=== PATIENT | male | born 1950 | race Caucasian/White ===

== ENCOUNTER 2020-12-29 09:24 | Emergency (ER) | payer OTHER, MEDICARE ==
[2020-12-29 09:29] VITALS: BP 193/98; PULSE 102; RESP 18; TEMP 97.2
[2020-12-29] MEDS ORDERED: predniSONE 50 MG TAB PO STA (09:41)
[2020-12-29] MEDS ORDERED: KETOROLAC 15 MG/ML 1 ML VIAL IM STA (09:41)
[2020-12-29] MEDS ORDERED: HYDROmorphone 1 MG/ML 1 ML SYRINGE IM STA (09:41)
--- NOTE | 2020-12-29 09:44 | ED ---
General Adult HPI - General Chief complaint: Extremity Injury, Lower Stated complaint: sciatic pain Time Seen by Provider: 12/29/20 09:25 Source: patient, RN notes reviewed, old records reviewed Mode of arrival: wheelchair Limitations: physical limitation - History of Present Illness Initial comments: This is a 70-year-old male presents emergency Department complaining of left- sided buttocks pain radiates down to his posterior thigh and posterior calf. Patient states symptoms started 2 days ago. Patient states she's had similar symptoms before and was diagnosed with sciatica. Patient denies any numbness or weakness. Patient denies any difficulty urinating or urinary retention. Patient denies any new injury. Patient denies any swelling to the legs or calf tenderness. - Related Data Previous Rx's Medication Instructions Recorded predniSONE [Deltasone] 40 mg PO DAILY #8 tab 12/29/20 Allergies Allergy/AdvReac Type Severity Reaction Status Date / Time No Known Allergies Allergy Verified 12/29/20 09:28 Review of Systems ROS Statement: Those systems with pertinent positive or pertinent negative responses have been documented in the HPI. ROS Other: All systems not noted in ROS Statement are negative. Past Medical History Past Medical History: GERD/Reflux, Hyperlipidemia Additional Past Medical History / Comment(s): back pain History of Any Multi-Drug Resistant Organisms: None Reported Past Surgical History: Back Surgery, Hernia Repair Smoking Status: Never smoker Past Alcohol Use History: None Reported Past Drug Use History: Marijuana General Exam - General Exam Comments Initial Comments: GENERAL Patient is well-developed and well-nourished. Patient is in mild distress. EYES Patient's pupils are equal and round. Extraocular motion is intact SKIN Unremarkable NEURO The patient is alert and oriented 3 PYSCH Patient has normal interpersonal interactions. MUSCULOSKELETAL Patient has positive straight leg test at 30 on the left. Patient has normal perineum sensation. Patient has some tenderness in the left buttocks region. Limitations: physical limitation Course Vital Signs 12/29/20 09:26 Temperature 97.2 F L Pulse Rate 102 H Respiratory 18 Rate Blood Pressure 193/98 O2 Sat by Pulse 100 Oximetry Medical Decision Making - Medical Decision Making patient received Toradol Dilaudid and prednisone. Patient's lumbosacral spine showed no acute injury. The pain medication helped the patient significantly. Disposition Clinical Impression: Sciatica Disposition: HOME SELF-CARE Condition: Good Instructions (If sedation given, give patient instructions): Sciatica (ED) Prescriptions: predniSONE [Deltasone] 40 mg PO DAILY #8 tab Is patient prescribed a controlled substance at d/c from ED?: No Referrals: Nonstaff,Physician [REFERRING] - 1-2 days Time of Disposition: 11:49
--- NOTE | 2020-12-29 11:17 | XR ---
Lumbar spine. HISTORY: Back pain and left lower extremity radiculopathy. COMPARISON: None. TECHNIQUE: 5 views lumbar spine were obtained. FINDINGS: The lumbar vertebral segments are normal in height and alignment and there is no fractures there is m ild degenerative disease at the L1-2, L2-3, L3-4 and L4-5 level is mild disc space mild There is mild facet arthropathy. IMPRESSION: 1. Mild degenerative disc disease at L1-L5. 2. Mild facet arthropathy at the L4-5 and L5-S1 level. 3. No spondylolysis, spondylolisthesis or lumbar spine fracture.
[2020-12-29] MEDS ORDERED: ACET/COD 300 MG/30 MG STARTER PACK 6 TAB BTL PO STA (11:49)
== END 2020-12-29 12:14 | disposition home or self-care (01) ==
LOC: EC 09:24
DX: M54.32 Sciatica, left side (principal)
CPT/HCPCS: 72110; 99283; 96372; J1170; J1885; J7512

== ENCOUNTER 2021-01-02 19:02 | Emergency (ER) | payer OTHER, MEDICARE ==
[2021-01-02] MEDS ORDERED: HYDROmorphone 1 MG/ML 1 ML SYRINGE IM STA (21:45)
[2021-01-02] MEDS ORDERED: KETOROLAC 15 MG/ML 1 ML VIAL IM STA (21:45)
--- NOTE | 2021-01-02 22:13 | ED ---
General Adult HPI - General Chief complaint: Back Pain/Injury Stated complaint: sciatic pain Time Seen by Provider: 01/02/21 21:13 Source: patient, RN notes reviewed Mode of arrival: ambulatory - History of Present Illness Initial comments: 70-year-old male with a past medical history of GERD, hyperlipidemia, back pain presents to the emergency room for sciatic pain. Patient states has been ongoing for about a week now. He does start in his left buttock and radiates down his leg. States it is a sharp burning pain. States sometimes his toes are tingling. Patient has been taking steroids but it doesn't seem to be helping. He was seen here and given pain medication a few days ago which helped. He ran out of his Tylenol 3. Patient denies bladder or bowel changes, saddle anesthesia, fevers, weakness.Patient has no other complaints at this time including shortness of breath, chest pain, abdominal pain, nausea or vomiting, headache, or visual changes. - Related Data Previous Rx's Medication Instructions Recorded predniSONE [Deltasone] 40 mg PO DAILY #8 tab 12/29/20 HYDROcodone/APAP 5-325MG [[place] 1 tab PO Q6HR PRN #12 tab 01/02/21 5-325] Allergies Allergy/AdvReac Type Severity Reaction Status Date / Time No Known Allergies Allergy Verified 01/02/21 20:42 Review of Systems ROS Statement: Those systems with pertinent positive or pertinent negative responses have been documented in the HPI. ROS Other: All systems not noted in ROS Statement are negative. Past Medical History Past Medical History: GERD/Reflux, Hyperlipidemia Additional Past Medical History / Comment(s): back pain History of Any Multi-Drug Resistant Organisms: None Reported Past Surgical History: Back Surgery, Hernia Repair Past Psychological History: No Psychological Hx Reported Smoking Status: Never smoker Past Alcohol Use History: None Reported Past Drug Use History: Marijuana General Exam General appearance: alert, in no apparent distress Head exam: Present: atraumatic Eye exam: Present: normal appearance, PERRL, EOMI. Absent: scleral icterus, conjunctival injection ENT exam: Present: normal exam, mucous membranes moist Neck exam: Present: normal inspection, full ROM. Absent: tenderness Respiratory exam: Present: normal lung sounds bilaterally. Absent: respiratory distress, wheezes Cardiovascular Exam: Present: regular rate, normal rhythm. Absent: normal heart sounds GI/Abdominal exam: Present: soft, normal bowel sounds. Absent: distended, tenderness Neurological exam: Present: alert Course Vital Signs 01/02/21 20:42 Temperature 96.8 F L Pulse Rate 84 Respiratory 22 Rate Blood Pressure 159/88 O2 Sat by Pulse 99 Oximetry Medical Decision Making - Medical Decision Making Vitals are stable. Patient is well-appearing. However he is mildly distressed secondary to pain. Neurovascular status intact left lower extremity. DP pulse 2+. Sensation is intact. CT lumbar spine did show mild relative spinal stenosis at L4-L5 due to facet arthropathy and posterior concentric disc bulging. She was given pain medication and did have improvement in symptoms. He is much more comfortable at this time. Patient is already on steroids. We'll refer patient to orthopedics. We will give him medication to go home on. He will return here for any worsening symptoms. Disposition Clinical Impression: Sciatica, Bulging of intervertebral disc between L4 and L5 Disposition: HOME SELF-CARE Condition: Good Instructions (If sedation given, give patient instructions): Acute Low Back Pain (ED) Additional Instructions: Please take pain medication as directed. Please follow-up with orthopedics. Return to the emergency room for any worsening symptoms. Prescriptions: HYDROcodone/APAP 5-325MG [[place] 5-325] 1 tab PO Q6HR PRN #12 tab PRN Reason: Pain Is patient prescribed a controlled substance at d/c from ED?: No Referrals: Sd Spangler MD [Primary Care Provider] - 1-2 days Paul Duque DO [Doctor of Osteopathic Medicine] - 1-2 days Time of Disposition: 23:20
--- NOTE | 2021-01-02 22:57 | CT ---
EXAMINATION TYPE: CT lumbar spine wo con DATE OF EXAM: 01/02/2021 COMPARISON: None HISTORY: low back and left leg pain CT DLP: 885.9 mGycm Automated exposure control for dose reduction was used. Images obtained from the level of T12-S2 vertebra without contrast. Lumbar vertebra have normal alignment. There is no compression fracture. There is mild spurring of th e endplates throughout the lumbar spine. There is a mild posterior concentric disc bulging at L4-5. T here is some mild facet arthropathy and a mild relative spinal stenosis at L4-5. There is no lumbar p araspinal mass. There is no evidence of focal bone destruction. Facet joints are intact. There is hyp ertrophic facet arthropathy at L4-5 and L5-S1. Abdominal aorta is atheromatous. Sacroiliac joints luis ear intact. IMPRESSION: Mild multilevel spondylotic changes. No acute bony abnormality. There is a mild relative spinal steno sis at L4-5 due to facet arthropathy and posterior concentric disc bulging.
[2021-01-02] MEDS ORDERED: ACET/COD 300 MG/30 MG STARTER PACK 6 TAB BTL PO STA (23:21)
[2021-01-02 23:46] VITALS: BP 125/78; PULSE 78; RESP 20; TEMP 98
== END 2021-01-02 23:44 | disposition home or self-care (01) ==
LOC: EC 19:02
DX: M54.42 Lumbago with sciatica, left side (principal); M51.26 Other intervertebral disc displacement, lumbar region; E78.5 Hyperlipidemia, unspecified; K21.9 Gastro-esophageal reflux disease without esophagitis; F12.90 Cannabis use, unspecified, uncomplicated; Z79.52 Long term (current) use of systemic steroids
CPT/HCPCS: 99283 ×2; 96372 ×3; 72131; J1170; J1885

== ENCOUNTER → 2021-02-08 | Outpatient (CLI) | payer OTHER, MEDICARE ==
--- NOTE | 2021-02-09 05:06 | MR ---
EXAMINATION TYPE: MR lumbar spine wo con DATE OF EXAM: 02/08/2021 COMPARISON: None HISTORY: LBP, LLE radiculopathy x 2 weeks, no hx trauma. Multiplanar multiecho imaging of the lumbar spine without contrast. Lumbar vertebra have normal alignment. There is degenerative disc space narrowing throughout the lumb ar spine. There is no compression fracture. There is minor spurring of the endplates. Sacroiliac join ts are intact. Lumbar nerve roots appear fairly normal. There is a right side posterior mild disc her niation at L4-5 impinging on the lateral recess. There is overall no significant spinal stenosis. IMPRESSION: Multilevel spondylotic changes. Right side posterior small disc herniation at L4-5 with some lateral recess impingement.
== END | disposition home or self-care (01) ==
LOC: RADMRIMAIN 18:05
PROVIDERS: ATTEND Orthopaedic Surgery Orthopaedic Surgery of the Spine
DX: M51.26 Other intervertebral disc displacement, lumbar region (principal); M47.816 Spondylosis without myelopathy or radiculopathy, lumbar region
CPT/HCPCS: 72148

== ENCOUNTER 2023-05-05 08:05 | Emergency (ER) | payer OTHER, MEDICARE ==
--- NOTE | 2023-05-05 08:25 | ED ---
Extremity Problem HPI - General Chief complaint: Extremity Injury, Upper Stated complaint: hand swelling,allergic reaction Time Seen by Provider: 05/05/23 08:10 Source: patient, RN notes reviewed Mode of arrival: ambulatory Limitations: no limitations - History of Present Illness Initial comments: This is a 72-year-old male who presents to the emergency department for left hand swelling. He states that he was drinking his coffee this morning, and believes something may have bit him. He had sudden pain to the left hand followed by redness and swelling. The pain has started to subside, but states that it is now very itchy. He tried using hydrocortisone cream without significant relief in symptoms. He is concerned that he is having some sort of allergic reaction. The rash has not started to spread up the arm and he denies any chest pain or shortness of breath. - Related Data Previous Rx's Medication Instructions Recorded predniSONE [Deltasone] 40 mg PO DAILY #8 tab 12/29/20 HYDROcodone/APAP 5-325MG [[place] 1 tab PO Q6HR PRN #12 tab 01/02/21 5-325] predniSONE 50 mg PO DAILY 5 Days #5 tab 05/05/23 Allergies Allergy/AdvReac Type Severity Reaction Status Date / Time bee venom protein (honey bee) Allergy Rash/Hives Verified 05/05/23 08:09 Review of Systems ROS Statement: Those systems with pertinent positive or pertinent negative responses have been documented in the HPI. ROS Other: All systems not noted in ROS Statement are negative. Past Medical History Past Medical History: COPD, GERD/Reflux, Hyperlipidemia Additional Past Medical History / Comment(s): back pain History of Any Multi-Drug Resistant Organisms: None Reported Past Surgical History: Back Surgery, Hernia Repair Past Psychological History: No Psychological Hx Reported Smoking Status: Former smoker Past Alcohol Use History: None Reported Past Drug Use History: Marijuana General Exam Limitations: no limitations General appearance: alert, in no apparent distress Head exam: Present: atraumatic, normocephalic, normal inspection Respiratory exam: Present: normal lung sounds bilaterally. Absent: respiratory distress, wheezes, rales, rhonchi, stridor Cardiovascular Exam: Present: regular rate, normal rhythm, normal heart sounds. Absent: systolic murmur, diastolic murmur, rubs, gallop, clicks Extremities exam: Present: other (Erythema and swelling to the dorsal aspect of the left hand. No tenderness. No increased heat.) Neurological exam: Present: alert, oriented X3, CN II-XII intact Psychiatric exam: Present: normal affect, normal mood Course Vital Signs 05/05/23 05/05/23 08:06 09:44 Temperature 97.7 F 98.2 F Pulse Rate 74 73 Respiratory 16 18 Rate Blood Pressure 151/77 123/76 O2 Sat by Pulse 96 98 Oximetry Medical Decision Making - Medical Decision Making This is a 72 year old male who presents to the emergency department for left hand redness and swelling. Was pt. sent in by a medical professional or institution? @ -No Did you speak to anyone other than the patient for history? @ -No Did you review nursing and triage notes? @ -Yes, and I agree, it is accurate with regards to the patient's symptoms. Were old charts reviewed? @ -No Differential Diagnosis? @ -Differential Hand Swelling/Redness: Cellulitis, allergic reaction, injury, gout, this is not meant to be an all- inclusive list. EKG interpreted by me (3pts min.)? @ -Not obtained X-rays interpreted by me (1pt min.)? @ -Not obtained CT interpreted by me (1pt min.)? @ -Not obtained U/S interpreted by me (1pt. min.)? @ -Not obtained What testing was considered but not performed? (CT, X-rays, U/S, labs)? Why? @ -None What meds were considered but not given? Why? @ -None Did you discuss the management of the patient with other professionals? @ -No Did you reconcile home meds? @ -No Was smoking cessation discussed for >3mins.? @ -No Was critical care preformed (if so, how long)? @ -No Were there social determinants of health that impacted care today? How? (Homelessness, low income, unemployed, alcoholism, drug addiction, transportation, low edu. Level, literacy, decrease access to med. care, residential, rehab)? @ -No Was there de-escalation of care discussed even if they declined? (Discuss DNR or withdrawal of care, Hospice)? @ -No What co-morbidities impacted this encounter? (DM, HTN, Smoking, COPD, CAD, Cancer, CVA, Hep., AIDS, mental health diagnosis, sleep apnea, morbid obesity)? @ -None Was patient admitted / discharged? @ -Discharged. Physical examination consistent with allergic/contact dermatitis. Patient given an allergy cocktail consisting of Solu-Medrol, Benadryl, and famotidine. Topical triamcinolone cream was also applied to the rash. Patient did have improvement in symptoms following medications. Prescription for prednisone provided with dosing instructions reviewed. He was also sent home with the triamcinolone cream to continue using if needed. Also advised an [id number] antihistamine for further management. Patient discharged home in stable condition. Undiagnosed new problem with uncertain prognosis? @ -None Drug Therapy requiring intensive monitoring for toxicity (Heparin, Nitro, Insulin, Cardizem)? @ -None Were any procedures done? @ -None Diagnosis/symptom? @ -Allergic/contact dermatitis Acute, or Chronic, or Acute on Chronic? @ -Acute Uncomplicated (without systemic symptoms) or Complicated (systemic symptoms)? @ -Uncomplicated Side effects of treatment? @ -None Exacerbation, Progression, or Severe Exacerbation] @ -Not applicable Poses a threat to life or bodily function? @ -No Return precautions reviewed in depth, the patient is instructed to return to the emergency department with any new, worsening, or concerning symptoms. Patient verbalized understanding. This case was discussed in detail with the attending ED physician, Dr. Ramirez. Presentation, findings, and treatment plan discussed in detail as well. Disposition Clinical Impression: Allergic dermatitis Disposition: HOME SELF-CARE Instructions (If sedation given, give patient instructions): Contact Dermatitis (ED) Additional Instructions: Return to the emergency department with any new, worsening, or concerning symptoms. Take the prednisone daily for 5 days. You can also use ove [id number] Benadryl or another antihistamine to help with the rash and itching. You can continue applying the cream provided 3-4 times daily for additional relief. Follow up with your primary care provider in 1-2 days. Prescriptions: predniSONE 50 mg PO DAILY 5 Days #5 tab Is patient prescribed a controlled substance at d/c from ED?: No Referrals: Sd Spangler MD [Primary Care Provider] - 1-2 days Time of Disposition: 09:21
[2023-05-05] MEDS: diphenhydrAMINE 50 MG/ML 1 ML VIAL IM STA (08:29)
[2023-05-05] MEDS: methylPREDNISolone SOD SUCCI 125 MG/2 ML VIAL IM ONE (08:29)
[2023-05-05] MEDS: FAMOTIDINE 20 MG TAB PO STA (08:30)
[2023-05-05] MEDS: TRIAMCINOLONE ACET 0.5% CREAM 15 GM TUBE TOPICAL STA (08:43)
[2023-05-05 10:00] VITALS: BP 123/76; PULSE 73; RESP 18; TEMP 98.2
== END 2023-05-05 10:05 | disposition home or self-care (01) ==
LOC: EC 08:05
DX: L23.9 Allergic contact dermatitis, unspecified cause (principal); J44.9 Chronic obstructive pulmonary disease, unspecified; F12.90 Cannabis use, unspecified, uncomplicated; Z91.030 Bee allergy status; Z87.891 Personal history of nicotine dependence
CPT/HCPCS: 99283; 96372 ×2; J1200; J2930

== ENCOUNTER 2023-10-02 07:00 | Emergency (ER) | payer OTHER, MEDICARE ==
[2023-10-02] MEDS ORDERED: IPRATROPIUM 0.5 MG/2.5 ML NEBU INHALATION ONE (08:03)
[2023-10-02] MEDS ORDERED: ALBUTEROL NEBULIZED 2.5 MG/3 ML INHALATION ONE (08:03)
[2023-10-02] MEDS ORDERED: methylPREDNISolone SOD SUCCI 125 MG/2 ML VIAL ONE (08:13)
[2023-10-02] MEDS ORDERED: ASPIRIN 325 MG TAB ONE (08:15)
[2023-10-02] MEDS ORDERED: SODIUM CHLORIDE 0.9% 1,000 ML BAG ONE (08:22)
--- NOTE | 2023-10-30 14:36 | XR ---
EXAMINATION TYPE: XR chest 2V DATE OF EXAM: 10/02/2023 COMPARISON: None TECHNIQUE: XR chest 2V Frontal and lateral views of the chest. CLINICAL INDICATION:Male, 72 years old with history of YADIRA; FINDINGS: Lungs/Pleura: There is no evidence of pleural effusion, focal consolidation, or pneumothorax. Pulmonary vascularity: Unremarkable. Heart/mediastinum: Cardiomediastinal silhouette is unremarkable. Musculoskeletal: No acute osseous pathology. Cervical fusion hardware partially visualized. IMPRESSION: No acute cardiopulmonary disease/process.
== END 2023-10-02 12:38 | disposition home or self-care (01) ==
LOC: EC 07:00
DX: J44.1 Chronic obstructive pulmonary disease with (acute) exacerbation (principal)
CPT/HCPCS: 71046; 93005; 94640; 96374; 99285

== ENCOUNTER → 2023-11-06 | Outpatient (CLI) | payer OTHER, MEDICARE ==
[2023-11-06 09:30] LABS: African American GFR (CKD) 87 (>60 ml/min/1.73 sqM); Blood Urea Nitrogen 17 mg/dL (9-20); Non-African American GFR(CKD) 75 (>60 ml/min/1.73 sqM)
--- NOTE | 2023-11-06 10:05 | CT ---
EXAMINATION TYPE: CT chest w con DATE OF EXAM: 11/06/2023 COMPARISON: None HISTORY: Follow up to COPD exacerbation several weeks ago CT DLP: 358.80 mGycm Automated exposure control for dose reduction was used. CONTRAST: CT scan of the chest is performed with IV Contrast, patient injected with 100 mL of Isovue 300. FINDINGS: LUNGS: Hyperinflation moderate emphysematous changes. Few scattered areas of subpleural fibrosis with in the left upper lobe and right upper lobe medially. Solid pulmonary nodule right middle lobe measur ing 7 mm. MEDIASTINUM: There are no greater than 1 cm hilar or mediastinal lymph nodes. No pericardial effusi on is seen. Thoracic aorta is of normal caliber. The heart is not enlarged. UPPER ABDOMEN: No significant abnormality appreciated. OTHER: No additional significant abnormality is seen. IMPRESSION: 1. Solid 7 mm pulmonary nodule right lower lobe. Six-month follow-up recommended. 2. Emphysematous changes.
== END | disposition home or self-care (01) ==
LOC: RADCTMAIN 08:43
PROVIDERS: ATTEND Internal Medicine Critical Care Medicine
DX: J44.9 Chronic obstructive pulmonary disease, unspecified
CPT/HCPCS: 36415; 71260; 82565; 84520

== ENCOUNTER 2024-04-15 13:38 | Inpatient (IN) | payer OTHER, MEDICARE ==
[2024-04-15] MEDS: ALBUTEROL NEBULIZED 2.5 MG/3 ML INHALATION STA (14:12)
[2024-04-15] MEDS: IPRATROPIUM 0.5 MG/2.5 ML NEBU INHALATION STA (14:13)
[2024-04-15] MEDS: LORazepam 2 MG/ML INJ IV STA ×3 (14:18→17:24)
--- NOTE | 2024-04-15 14:23 | ED ---
General Adult HPI - General Chief complaint: Shortness of Breath Stated complaint: YADIRA Time Seen by Provider: 04/15/24 13:48 Source: patient, EMS, RN notes reviewed, old records reviewed Mode of arrival: EMS Limitations: no limitations - History of Present Illness Initial comments: 73-year-old male presenting with respiratory distress. History limited due to tachypnea and work of breathing. History of COPD. Patient was transported by paramedics, given albuterol and Atrovent during transport. Upon arrival patient is in distress, tachycardic, tachypneic with minimal air entry. He denies central chest pain. Denies fever. Denies lower extremity pain or swelling. - Related Data Home Medications Medication Instructions Recorded Confirmed Albuterol Nebulized [Ventolin 2.5 mg INHALATION RT-Q6H PRN 04/01/24 04/15/24 Nebulized] Albuterol Sulfate [Albuterol 2 puff INHALATION RT-QID PRN 04/01/24 04/15/24 Sulfate Hfa] Buprenorphine-Nalox 8-2 mg Tab 1 tab SUBLINGUAL W/SUPPER 04/01/24 04/15/24 [Suboxone 8-2 mg Tab] Cholecalciferol (Vitamin D3) 50 mcg PO W/SUPPER 04/01/24 04/15/24 [Vitamin D3 (50 Mcg = 2000 Iu)] Fluticasone Propion/Salmeterol 1 puff INHALATION RT-BID 04/01/24 04/15/24 [Fluticasone-Salmeterol 500-50] Omeprazole [PriLOSEC] 40 mg PO W/SUPPER 04/01/24 04/15/24 Rosuvastatin [Crestor] 20 mg PO W/SUPPER 04/01/24 04/15/24 Tiotropium 2.5 Mcg/Puff [Spiriva 2 puff INHALATION RT-HS 04/01/24 04/15/24 Respimat 2.5 Mcg] Ipratropium-Albuterol Nebulize 3 ml INHALATION RT-Q6H PRN 04/15/24 04/15/24 [Duoneb 0.5 mg-3 mg/3 ml Soln] methylPREDNISolone [Medrol Dose See Taper PO DIRECTED 04/15/24 04/15/24 Pack] Previous Rx's Medication Instructions Recorded Furosemide [Lasix] 20 mg PO DAILY #60 tab 04/07/24 amLODIPine [Norvasc] 5 mg PO BID #90 tab 04/07/24 carvediloL [Coreg] 6.25 mg PO BID-W/MEALS #60 tab 04/07/24 polyethylene glycoL 3350 [Miralax] 17 gm PO DAILY #30 packet 04/07/24 Allergies Allergy/AdvReac Type Severity Reaction Status Date / Time bee venom protein (honey bee) Allergy Rash/Hives Verified 04/15/24 14:52 strawberry Allergy Rash/Hives Verified 04/15/24 14:52 Review of Systems ROS Statement: Those systems with pertinent positive or pertinent negative responses have been documented in the HPI. ROS Other: All systems not noted in ROS Statement are negative. Past Medical History Past Medical History: COPD, GERD/Reflux, Hyperlipidemia Additional Past Medical History / Comment(s): no home O2 History of Any Multi-Drug Resistant Organisms: None Reported Past Surgical History: Back Surgery, Hernia Repair Additional Past Surgical History / Comment(s): surgery discs in neck w/ metal plate and 6 screws. Past Anesthesia/Blood Transfusion Reactions: No Reported Reaction Past Psychological History: No Psychological Hx Reported Smoking Status: Former smoker Past Alcohol Use History: None Reported Past Drug Use History: Marijuana - Past Family History Mother History Unknown: Yes Family Medical History: Cancer General Exam Limitations: no limitations General appearance: in distress Head exam: Present: atraumatic, normocephalic Eye exam: Present: normal appearance, PERRL Respiratory exam: Present: respiratory distress, accessory muscle use, decreased breath sounds, prolonged expiratory Cardiovascular Exam: Present: normal rhythm, tachycardia GI/Abdominal exam: Present: soft. Absent: distended, tenderness Extremities exam: Present: normal inspection, normal capillary refill. Absent: calf tenderness Neurological exam: Present: alert, oriented X3. Absent: CN II-XII intact, motor sensory deficit Psychiatric exam: Present: anxious Skin exam: Present: cyanosis Course Vital Signs 04/15/24 04/15/24 04/15/24 13:41 13:46 14:12 Temperature Pulse Rate 117 H 118 H 114 H Respiratory 36 H 30 H Rate Blood Pressure 172/97 O2 Sat by Pulse 97 98 Oximetry Fraction of Inspired Oxygen (FIO2) 04/15/24 04/15/24 04/15/24 14:22 14:28 14:30 Temperature Pulse Rate 115 H 124 H Respiratory 34 H 34 H 35 H Rate Blood Pressure 164/86 O2 Sat by Pulse 99 99 Oximetry Fraction of Inspired Oxygen (FIO2) 04/15/24 04/15/24 04/15/24 14:44 14:45 14:46 Temperature 98.1 F Pulse Rate 126 H 125 H Respiratory 38 H Rate Blood Pressure 173/110 O2 Sat by Pulse 96 Oximetry Fraction of 40 Inspired Oxygen (FIO2) 04/15/24 15:23 Temperature Pulse Rate 102 H Respiratory 18 Rate Blood Pressure 103/63 O2 Sat by Pulse 99 Oximetry Fraction of Inspired Oxygen (FIO2) Medical Decision Making - Medical Decision Making Was pt. sent in by a medical professional or institution (, [facility], [employer]ER, urgent care, hospital, or [place] health care facility...) When possible be specific @ -No Did you speak to anyone other than the patient for history (EMS, parent, family, police, friend...)? What history was obtained from this source @ -No Did you review nursing and triage notes (agree or disagree)? Why? @ -I reviewed and agree with nursing and triage notes Were old charts reviewed (outside hosp., previous admission, EMS record, old EKG, old radiological studies, urgent care reports/EKG's, [place] health care facility records)? Report findings @ -No old charts were reviewed Differential Dyspnea: Coronary syndrome, arrhythmia, tamponade, asthma, COPD, pulmonary embolism, pneumonia, pneumothorax, pulmonary effusion, anaphylaxis, diabetic ketoacidosis, flailed chest, pulmonary contusion, diaphragmatic rupture, anemia, neuromuscular, this is not meant to be an all-inclusive list. EKG interpreted by me (3pts min.). @ -Sinus tachycardia rate of 114, SD interval 165, QRS duration 138, QTc 413 significant respiratory artifact limiting assessment. X-rays interpreted by me (1pt min.). @ -Chest x-ray showing chronic changes without consolidated pneumonia or pneumothorax CT interpreted by me (1pt min.). @ -None done U/S interpreted by me (1pt. min.). @ -None done What testing was considered but not performed or refused? (CT, X-rays, U/S, labs)? Why? @ -None What meds were considered but not given or refused? Why? @ -None Did you discuss the management of the patient with other professionals (professionals i.e. , PA, F[employer] E[employer]IENT [employer]CRAFT DESIGNER, lab, RT, psych nurse, social insurance adviser, breast worker, teacher, fourth officer, briefcase sewer)? Give summary @ -Yes, Reagan barton for [facility], [facility] Was smoking cessation discussed for >3mins.? @ -No Was critical care preformed (if so, how long)? @Yes, 35 minutes Were there social determinants of health that impacted care today? How? (Homelessness, low income, unemployed, alcoholism, drug addiction, transportation, low edu. Level, literacy, decrease access to med. care, fdc, rehab)? @ -No Was there de-escalation of care discussed even if they declined (Discuss DNR or withdrawal of care, Hospice)? DNR status @ -No What co-morbidities impacted this encounter? (DM, HTN, Smoking, COPD, CAD, Cancer, CVA, ARF, Chemo, Hep., AIDS, mental health diagnosis, sleep apnea, morbid obesity)? @History of COPD Was patient admitted / discharged? Hospital course, mention meds given and route, prescriptions, significant lab abnormalities, going to OR and other pertinent info. @ -73-year-old male presenting with respiratory distress, tachypneic hypoxic. Patient placed on BiPAP upon arrival. Treated for COPD exacerbation. This is likely secondary to RSV which the patient does test positive for. He is continued on BiPAP in the emergency department admitted to internal medicine with pulmonology on consult Undiagnosed new problem with uncertain prognosis? @ -No Drug Therapy requiring intensive monitoring for toxicity (Heparin, Nitro, Insulin, Cardizem)? @ -No Were any procedures done? @ -No Diagnosis/symptom? @COPD secondary to RSV, respiratory failure requiring BiPAP Acute, or Chronic, or Acute on Chronic? @Acute on chronic Uncomplicated (without systemic symptoms) or Complicated (systemic symptoms)? @ -Default Side effects of treatment? @ -No Exacerbation, Progression, or Severe Exacerbation? @ -No Poses a threat to life or bodily function? How? (Chest pain, USA, AR, pneumonia, PE, COPD, DKA, ARF, appy, cholecystitis, CVA, Diverticulitis, Homicidal, Suicidal, threat to staff... and all critical care pts) @ yes, respiratory failure - Lab Data Result diagrams: 04/15/24 14:22 04/15/24 14:22 Lab Results 04/15/24 04/15/2425 Range/Units 14:22 14:22 14:22 WBC 15.0 H (3.8-10.6) k/uL RBC 4.84 (4.30-5.90) m/uL Hgb 14.5 (13.0-17.5) gm/dL Hct 43.2 (39.0-53.0) % MCV 89.3 (80.0-100.0) fL MCH 29.9 (25.0-35.0) pg MCHC 33.5 (31.0-37.0) g/dL RDW 12.5 (11.5-15.5) % Plt Count 334 (150-450) k/uL MPV 7.0 Neutrophils % 87 % Lymphocytes % 9 % Monocytes % 4 % Eosinophils % 0 % Basophils % 0 % Neutrophils # 13.0 H (1.3-7.7) k/uL Lymphocytes # 1.3 (1.0-4.8) k/uL Monocytes # 0.5 (0-1.0) k/uL Eosinophils # 0.0 (0-0.7) k/uL Basophils # 0.0 (0-0.2) k/uL PT 10.6 (10.0-12.5) sec INR 0.9 (<1.2) APTT 22.0 (22.0-30.0) sec Sodium 132 L (137-145) mmol/L Potassium 4.9 (3.5-5.1) mmol/L Chloride 96 L (98-107) mmol/L Carbon Dioxide 27 (22-30) mmol/L Anion Gap 9 mmol/L BUN 29 H (9-20) mg/dL Creatinine 0.98 (0.66-1.25) mg/dL Est GFR (CKD-EPI)AfAm >90 (>60 ml/min/1.73 sqM) Est GFR (CKD-EPI)NonAf 78 (>60 ml/min/1.73 sqM) Glucose 150 H (74-99) mg/dL Plasma Lactic Acid Etienne (0.7-2.0) mmol/L Calcium 8.9 (8.4-10.2) mg/dL Magnesium 1.9 (1.6-2.3) mg/dL Total Bilirubin 1.2 (0.2-1.3) mg/dL AST 33 (17-59) U/L ALT 43 (4-49) U/L Alkaline Phosphatase 70 (38-126) U/L Troponin I (0.000-0.034) ng/mL NT-Pro-B Natriuret Pep 60 pg/mL Total Protein 7.5 (6.3-8.2) g/dL Albumin 3.9 (3.5-5.0) g/dL Influenza Type A (PCR) (Not Detectd) Influenza Type B (PCR) (Not Detectd) RSV (PCR) (Not Detectd) SARS-CoV-2 (PCR) (Not Detectd) 04/15/24 04/15/24 04/15/24 Range/Units 14:22 14:22 15:39 WBC (3.8-10.6) k/uL RBC (4.30-5.90) m/uL Hgb (13.0-17.5) gm/dL Hct (39.0-53.0) % MCV (80.0-100.0) fL MCH (25.0-35.0) pg MCHC (31.0-37.0) g/dL RDW (11.5-15.5) % Plt Count (150-450) k/uL MPV Neutrophils % % Lymphocytes % % Monocytes % % Eosinophils % % Basophils % % Neutrophils # (1.3-7.7) k/uL Lymphocytes # (1.0-4.8) k/uL Monocytes # (0-1.0) k/uL Eosinophils # (0-0.7) k/uL Basophils # (0-0.2) k/uL PT (10.0-12.5) sec INR (<1.2) APTT (22.0-30.0) sec Sodium (137-145) mmol/L Potassium (3.5-5.1) mmol/L Chloride (98-107) mmol/L Carbon Dioxide (22-30) mmol/L Anion Gap mmol/L BUN (9-20) mg/dL Creatinine (0.66-1.25) mg/dL Est GFR (CKD-EPI)AfAm (>60 ml/min/1.73 sqM) Est GFR (CKD-EPI)NonAf (>60 ml/min/1.73 sqM) Glucose (74-99) mg/dL Plasma Lactic Acid Etienne 1.2 (0.7-2.0) mmol/L Calcium (8.4-10.2) mg/dL Magnesium (1.6-2.3) mg/dL Total Bilirubin (0.2-1.3) mg/dL AST (17-59) U/L ALT (4-49) U/L Alkaline Phosphatase (38-126) U/L Troponin I 0.013 (0.000-0.034) ng/mL NT-Pro-B Natriuret Pep pg/mL Total Protein (6.3-8.2) g/dL Albumin (3.5-5.0) g/dL Influenza Type A (PCR) Not Detected (Not Detectd) Influenza Type B (PCR) Not Detected (Not Detectd) RSV (PCR) Detected A (Not Detectd) SARS-CoV-2 (PCR) Not Detected (Not Detectd) Critical Care Time Critical Care Time: Yes Total Critical Care Time: 35 Disposition Clinical Impression: RSV (respiratory syncytial virus infection), COPD exacerbation Disposition: ADMITTED IP TO THIS HOSP Condition: Serious Is patient prescribed a controlled substance at d/c from ED?: No Referrals: Sd Spangler MD [Primary Care Provider] - 1-2 days Time of Disposition: 17:07
--- NOTE | 2024-04-15 14:26 | XR ---
EXAMINATION TYPE: XR chest 1V portable DATE OF EXAM: 04/15/2024 2:17 PM COMPARISON: Chest radiographs from 04/08/2024 CLINICAL INDICATION: Male, 73 years old with history of lavell; [facility] TECHNIQUE: XR chest 1V portable Frontal view of the chest. FINDINGS: Lungs/Pleura: There is flattening of the diaphragm with increased lucency of the lungs. No evidence o f pneumothorax, pleural effusion or focal consolidation. Pulmonary vascularity: Unremarkable. Heart/mediastinum: Cardiomediastinal silhouette is unremarkable. Musculoskeletal: No acute osseous pathology. IMPRESSION: 1. No acute cardiopulmonary disease process. 2. COPD changes. [facility], , 04/15/2024 2:24 PM
[2024-04-15] MEDS: methylPREDNISolone SOD SUCCI 125 MG/2 ML VIAL IV STA (14:34)
[2024-04-15 14:57] LABS: Basophils % (A) 0 %; Eosinophils % (A) 0 %; HCT 43.2 % (39.0-53.0); HGB 14.5 gm/dL (13.0-17.5); Lymphocytes # (A) 1.3 k/uL (1.0-4.8); Lymphocytes % (A) 9 %; MCH 29.9 pg (25.0-35.0); MCHC 33.5 g/dL (31.0-37.0); MCV 89.3 fL (80.0-100.0); Monocytes # (A) 0.5 k/uL (0-1.0); Monocytes % (A) 4 %; Neutrophils % (A) 87 %; Platelet Count 334 k/uL (150-450); RBC 4.84 m/uL (4.30-5.90); RDW 12.5 % (11.5-15.5)
[2024-04-15 15:10] LABS: INR 0.9 (<1.2); Prothrombin Time 10.6 sec (10.0-12.5)
[2024-04-15 15:12] LABS: ALT 43 U/L (4-49); AST 33 U/L (17-59); African American GFR (CKD) >90 (>60 ml/min/1.73 sqM); Albumin 3.9 g/dL (3.5-5.0); Alkaline Phosphatase 70 U/L (38-126); Anion Gap 9 mmol/L; Blood Urea Nitrogen 29 mg/dL (9-20); Calcium 8.9 mg/dL (8.4-10.2); Carbon Dioxide 27 mmol/L (22-30); Chloride 96 mmol/L (98-107); Glucose 150 mg/dL (74-99); Magnesium 1.9 mg/dL (1.6-2.3); Non-African American GFR(CKD) 78 (>60 ml/min/1.73 sqM); Potassium 4.9 mmol/L (3.5-5.1); Sodium 132 mmol/L (137-145); Total Bilirubin 1.2 mg/dL (0.2-1.3); Total Protein 7.5 g/dL (6.3-8.2)
[2024-04-15 15:20] LABS: NT-Pro-B-Type Natriuretic Pept 60 pg/mL
[2024-04-15 16:28] LABS: Influenza A Not Detected (Not Detectd); Influenza B Not Detected (Not Detectd); RSV Detected (Not Detectd)
[2024-04-15] MEDS ORDERED: IPRATROPIUM-ALBUTEROL 3 ML NEB INHALATION PRN (17:04)
[2024-04-15] MEDS ORDERED: ACETAMINOPHEN TAB 325 MG TAB PO PRN (17:04)
[2024-04-15] MEDS ORDERED: NALOXONE 0.4 MG/ML 1 ML VIAL IVP PRN (17:04)
[2024-04-15] MEDS ORDERED: LORazepam 2 MG/ML INJ IV PRN (18:11)
[2024-04-15 19:12] LABS: ABG Base Excess 1.1 mmol/L; ABG HCO3 28 mmol/L (21-25); ABG PCO2 55 mmHg (35-45); ABG PH 7.32 (7.35-7.45); ABG PO2 60 mmHg (83-108); ABG TCO2 30 mmol/L (19-24); Allen Test Performed? Yes
[2024-04-15] MEDS: HALOPERIDOL LACTATE 5 MG/ML 1 ML VIAL IVP ONE (19:19)
[2024-04-15] MEDS: IPRATROPIUM-ALBUTEROL 3 ML NEB INHALATION SCH (19:32)
[2024-04-15] MEDS: methylPREDNISolone SOD SUCCI 125 MG/2 ML VIAL IV SCH (20:02)
[2024-04-15] MEDS: DEXMEDETOMIDINE/0.9% NACL(PMX) 400 MCG in EMPTY BAG 1 BAG IV SCH (20:15)
[2024-04-15 20:17] LABS: Glucose,Whole Blood 167 mg/dL (70-110)
[2024-04-15] MEDS: SODIUM CHLORIDE 0.9% 1,000 ML IV SCH (21:05)
[2024-04-15] MEDS: SODIUM CHLORIDE 0.9% 1,000 ML IV ONE (21:40)
--- NOTE | 2024-04-16 05:30 | P.HPIM ---
History of Present Illness H&P Date: 04/15/24 Patient is a 73-year-old male with past medical history significant for COPD not oxygen dependent, hypertension, hyperlipidemia, GERD presenting to the emergency department today due to shortness of breath. Patient is seen in the ICU while on BiPAP with at bedside who reports much of the history. On 03/30/2024 patient was diagnosed with RSV, on 04/01/2024 he was admitted for worsening of shortness of breath. Since his discharge on 04/07/2024 his states that he has been doing well. Today while at running errands he had sudden onset shortness of breath and was diaphoretic so she called EMS. In transport to the ED he was given albuterol and Atrovent. Upon arrival he was in respiratory distress, tachypneic with minimal air entry, and tachycardic. He was placed on BiPAP and transferred to the ICU. Unable to obtain ROS at the time of the interview due to sedation. Initial vitals: BP 172/97, OH 117 bpm, RR 36 Initial labs: WBC 15, hemoglobin 14.5, platelets 334, sodium 132, potassium 4.9, chloride 96, CO2 27, BUN 29, creatinine 0.90, glucose 150; RSV positive Initial EKG: Sinus tachycardia with ventricular rate 114 bpm, right bundle branch block, QTc 413 ms Initial chest x-ray: COPD changes, no acute cardiopulmonary disease process Review of Systems ROS unobtainable: due to mental status (patient on precedex) Past Medical History Past Medical History: COPD, GERD/Reflux, Hyperlipidemia Additional Past Medical History / Comment(s): no home O2 History of Any Multi-Drug Resistant Organisms: None Reported Past Surgical History: Back Surgery, Hernia Repair Additional Past Surgical History / Comment(s): surgery discs in neck w/ metal plate and 6 screws. Past Anesthesia/Blood Transfusion Reactions: No Reported Reaction Past Psychological History: No Psychological Hx Reported Smoking Status: Former smoker Past Alcohol Use History: None Reported Past Drug Use History: Marijuana - Past Family History Mother History Unknown: Yes Family Medical History: Cancer Medications and Allergies Home Medications Medication Instructions Recorded Confirmed Type RX: Albuterol Nebulized [Ventolin 2.5 mg INHALATION RT-Q6H PRN 04/01/24 04/15/24 History Nebulized] RX: Albuterol Sulfate [Albuterol 2 puff INHALATION RT-QID PRN 04/01/24 04/15/24 History Sulfate Hfa] RX: Buprenorphine-Nalox 8-2 mg Tab 1 tab SUBLINGUAL W/SUPPER 04/01/24 04/15/24 History [Suboxone 8-2 mg Tab] RX: Cholecalciferol (Vitamin D3) 50 mcg PO W/SUPPER 04/01/24 04/15/24 History [Vitamin D3 (50 Mcg = 2000 Iu)] RX: Fluticasone Propion/Salmeterol 1 puff INHALATION RT-BID 04/01/24 04/15/24 History [Fluticasone-Salmeterol 500-50] RX: Omeprazole [PriLOSEC] 40 mg PO W/SUPPER 04/01/24 04/15/24 History RX: Rosuvastatin [Crestor] 20 mg PO W/SUPPER 04/01/24 04/15/24 History RX: Tiotropium 2.5 Mcg/Puff 2 puff INHALATION RT-HS 04/01/24 04/15/24 History [Spiriva Respimat 2.5 Mcg] RX: Furosemide [Lasix] 20 mg PO DAILY #60 tab 04/07/24 04/15/24 Rx RX: amLODIPine [Norvasc] 5 mg PO BID #90 tab 04/07/24 04/15/24 Rx RX: carvediloL [Coreg] 6.25 mg PO BID-W/MEALS #60 tab 04/07/24 04/15/24 Rx RX: polyethylene glycoL 3350 17 gm PO DAILY #30 packet 04/07/24 04/15/24 Rx [Miralax] Ipratropium-Albuterol Nebulize 3 ml INHALATION RT-Q6H PRN 04/15/24 04/15/24 History [Duoneb 0.5 mg-3 mg/3 ml Soln] methylPREDNISolone [Medrol Dose See Taper PO DIRECTED 04/15/24 04/15/24 History Pack] Allergies Allergy/AdvReac Type Severity Reaction Status Date / Time bee venom protein (honey bee) Allergy Rash/Hives Verified 04/15/24 14:52 strawberry Allergy Rash/Hives Verified 04/15/24 14:52 Physical Exam Vitals: Vital Signs Temp Pulse Resp BP Pulse Ox FiO2 04/15/24 19:56 97.2 F L 124 H 40 H 138/110 04/15/24 19:40 117 H 37 H 187/112 99 04/15/24 19:39 118 H 33 H 04/15/24 19:32 118 H 32 H 04/15/24 19:30 55 04/15/24 19:26 12 L 38 H 172/90 91 L 04/15/24 19:03 112 H 36 H 184/110 93 L 04/15/24 18:44 109 H 30 H 175/90 95 04/15/24 18:05 94 18 93/54 96 04/15/24 17:21 108 H 30 H 157/84 90 L 04/15/24 17:09 106 H 26 H 102/59 97 04/15/24 15:23 102 H 18 103/63 99 04/15/24 14:46 98.1 F 125 H 38 H 173/110 96 04/15/24 14:45 40 04/15/24 14:44 126 H 04/15/24 14:30 124 H 35 H 99 04/15/24 14:28 34 H 04/15/24 14:22 115 H 34 H 164/86 99 04/15/24 14:12 114 H 04/15/24 13:46 118 H 30 H 98 04/15/24 13:41 117 H 36 H 172/97 97 Intake and Output 04/15/24 04/15/24 04/15/24 06:59 14:59 22:59 Output Total 200 Balance -200 Output: Urine 200 Uretheral (Peres) 200 Other: Weight 77.111 kg Vital signs reviewed General: Acute respiratory distress, on BiPAP, appears stated age Derm: Warm, dry, intact, no cyanosis Head: Atraumatic, normocephalic, symmetric Eyes: PERRL Ears: Normal appearing, no external lesions, hearing intact Nose: Normal appearing, no external lesions Mouth: Unable to assess Neck: Supple, without lesions, trachea midline Cardiovascular: S1-S2 regular, tachycardic, distant heart sounds, no murmur, no pedal edema Lungs: Decreased breath sounds bilaterally, accessory muscle use, increased work of breathing Abdominal: Soft, non-tender to palpation, bowel sounds present Extremities: Unable to assess muscle strength, radial pulses 2+ bilateral, posterior tibial pulses diminished bilateral Neuro: Lethargic, gross neurological examination did not reveal any focal defici ts Results CBC & Chem 7: 04/15/24 14:22 04/15/24 14:22 Labs: Abnormal Lab Results - Last 24 Hours (Table) 04/15/24 04/15/24 04/15/24 Range/Units 14:22 14:22 15:39 WBC 15.0 H (3.8-10.6) k/uL Neutrophils # 13.0 H (1.3-7.7) k/uL Sodium 132 L (137-145) mmol/L Chloride 96 L (98-107) mmol/L BUN 29 H (9-20) mg/dL Glucose 150 H (74-99) mg/dL POC Glucose (mg/dL) (70-110) mg/dL RSV (PCR) Detected A (Not Detectd) 04/15/24 Range/Units 20:16 WBC (3.8-10.6) k/uL Neutrophils # (1.3-7.7) k/uL Sodium (137-145) mmol/L Chloride (98-107) mmol/L BUN (9-20) mg/dL Glucose (74-99) mg/dL POC Glucose (mg/dL) 167 H (70-110) mg/dL RSV (PCR) (Not Detectd) Thrombosis Risk Factor Assmnt - DVT/VTE Prophylaxis DVT/VTE Prophylaxis: Pharmacologic Prophylaxis ordered - Choose All That Apply Each Factor Represents 1 point: Abnormal pulmonary function (COPD), Obesity (BMI >25), Serious lung disease incl. pneumonia (< 1month) Each Risk Factor Represents 2 Points: Age 61-74 years Thrombosis Risk Factor Assessment Total Risk Factor Score: 5 Thrombosis Risk Factor Assessment Level: High Risk Assessment and Plan Assessment: Patient is a 73-year-old male with past medical history significant for not oxygen dependent COPD, hypertension, hyperlipidemia, GERD admitted for acute COPD exacerbation. Plan: Active #. Acute COPD exacerbation #. Acute hypoxic respiratory failure #. Leukocytosis with neutrophilic predominance #. RSV pneumonia #. Respiratory acidosis On BiPAP AB.32, 55, 60 on 44% FiO2 Continue with oxygen supplementation to maintain O2 saturation greater than 88% Continue with DuoNebs four times daily and as needed Continue SoluMedrol 60 mg IV every 6 hours check D dimer , if positive consider ruling out PE continue fluticasone/salmetrol BID inhaler pulmonary consult ICU care , patient became agitated on BIPAP , despite giving ativan, started on precedex and transferred to icu check blood cultures check sputum culture check pro radha #. Hypotension Received 1 L bolus 0.9% saline Continue with 0.9% saline at 100 cc/h Chronic #. Hypertension Hold home amlodipine Continue Coreg; hold for SBP <100 #. Hyperlipidemia Continue Crestor 20 mg daily DVT prophylaxis: Lovenox 40 mg subcutaneous daily GI prophylaxis: Omeprazole 40 mg p.o. daily The patient is admitted with an anticipated more than 2 midnight stay for evaluation of acute COPD exacerbation CODE STATUS: Full code Anticipated discharge place: Pending clinical course I have seen and evaluated the patient today. I Discussed the case with the resident and agree with the resident's findings I edited the assessment and plan as necessary as documented in the resident's note.
[2024-04-16 05:46] LABS: African American GFR (CKD) >90 (>60 ml/min/1.73 sqM); Anion Gap 5 mmol/L; Blood Urea Nitrogen 29 mg/dL (9-20); Calcium 8.1 mg/dL (8.4-10.2); Carbon Dioxide 26 mmol/L (22-30); Chloride 102 mmol/L (98-107); Glucose 156 mg/dL (74-99); Non-African American GFR(CKD) >90 (>60 ml/min/1.73 sqM); Potassium 4.9 mmol/L (3.5-5.1); Sodium 133 mmol/L (137-145)
[2024-04-16 06:15] LABS: HCT 34.2 % (39.0-53.0); MCH 29.5 pg (25.0-35.0); MCV 89.5 fL (80.0-100.0); Mean Platelet Volume 7.8; Platelet Count 219 k/uL (150-450); RBC 3.82 m/uL (4.30-5.90); RDW 12.8 % (11.5-15.5); WBC 6.7 k/uL (3.8-10.6)
[2024-04-16 06:17] LABS: HGB 11.3 gm/dL (13.0-17.5)
[2024-04-16] MEDS: PANTOPRAZOLE 40 MG TABLET PO SCH (06:47)
[2024-04-16] MEDS: carvediloL 6.25 MG TAB PO SCH (06:47)
[2024-04-16] MEDS: SYMBICORT 160-4.5 MCG INHALER INHALATION SCH (08:48)
[2024-04-16] MEDS: ENOXAPARIN 40 MG/0.4 ML SYRINGE SQ SCH (09:45)
--- NOTE | 2024-04-16 13:45 | P.CNPUL ---
History of Present Illness Consult date: 04/16/24 Reason for consult: dyspnea, COPD History of present illness: This is a 73-year-old white male, known history of severe COPD/emphysema, FEV1 is in the range of 24% at best based on the PFT done on 10/22/2023. FEV1/FVC is 44%, DLCO is in the range of 42%, patient obviously has severe Gold stage IV COPD/emphysema. However according to the patient is not O2 dependent, and is not prednisone dependent. The patient had a recent hospitalization on 04/12/2024 for an acute CF exacerbation secondary to acute RSV infection.This patient presented yesterday to the emergency department because of increased shortness of breath. The patient was quite tachypneic and was having some altered mentation. Initially, he was placed on a BiPAP. He was unable to tolerate the BiPAP and based on that, the patient was initially given Haldol and subsequently was started on Precedex drip and BiPAP therapy was continued throughout the night. He was transferred to the intensive care unit. Currently, Precedex is running at 0.3 mcg/kg/min. He is on a BiPAP pressure of 12/5 with an FiO2 of 50%. Blood gases showed a pH of 7.32 with a pCO2 55 pO2 of 60. He is generating approximately a tidal volume of 450 cc while being on a BiPAP with respiratory rate of 22. He is obviously less tachypneic compared to yesterday. Chest x-ray shows COPD without any airspace disease. Noted the patient had a RSV infection requiring a brief hospitalization back in 04/02/2024 and RSV still positive. The rest of the viral screen was negative. BUN 29 with a creatinine of 0.7. Serum bicarbonate 26 with a sodium level of 133. D-dimer is 0.6. The white cell count 6.7 with a hemogram 0.3 and a platelet count of 219. He is on DuoNeb updrafts. He is on IV Solu-Medrol. Arousable and awake and mental status improved compared to yesterday. No significant agitation. Review of Systems Constitutional: Reports daytime sleepiness, Reports fatigue, Reports weakness Eyes: denies as per HPI, denies blurred vision, denies bulging eye, denies decreased vision, denies diplopia, denies discharge, denies dry eye, denies irritation, denies itching, denies pain, denies photophobia, denies loss of peripheral vision, denies loss of vision, denies tunnel vision/blind spots Ears: deny: decreased hearing, ear discharge, earache, tinnitus Ears, nose, mouth and throat: Reports as per HPI Breasts: absent: as per HPI, gynecomastia Cardiovascular: Reports decreased exercise tolerance, Reports dyspnea on exertion Respiratory: Reports cough, Reports dyspnea, Reports home oxygen, Reports wheezing Gastrointestinal: Reports as per HPI Genitourinary: Reports as per HPI Musculoskeletal: Reports as per HPI Musculoskeletal: absent: ankle pain, ankle stiffness, ankle swelling, as per HPI, elbow pain, elbow stiffness, elbow swelling, foot pain, foot stiffness, foot swelling, hand pain, hand stiffness, hand swelling, hip pain, hip stiffness, hip swelling, knee pain, knee stiffness, knee swelling, shoulder pain, shoulder stiffness, shoulder swelling, wrist pain, wrist stiffness, wrist swelling Integumentary: Reports as per HPI Neurological: Reports change in mentation Psychiatric: Reports as per HPI Endocrine: Reports as per HPI, Reports fatigue Hematologic/Lymphatic: Reports as per HPI Allergic/Immunologic: Reports as per HPI Past Medical History Past Medical History: COPD, GERD/Reflux, Hyperlipidemia Additional Past Medical History / Comment(s): no home O2 History of Any Multi-Drug Resistant Organisms: None Reported Past Surgical History: Back Surgery, Hernia Repair Additional Past Surgical History / Comment(s): surgery discs in neck w/ metal plate and 6 screws. Past Anesthesia/Blood Transfusion Reactions: No Reported Reaction Past Psychological History: No Psychological Hx Reported Smoking Status: Former smoker Past Alcohol Use History: None Reported Past Drug Use History: Marijuana - Past Family History Mother History Unknown: Yes Family Medical History: Cancer Medications and Allergies Home Medications Medication Instructions Recorded Confirmed Type Albuterol Nebulized [Ventolin 2.5 mg INHALATION RT-Q6H PRN 04/01/24 04/15/24 History Nebulized] Albuterol Sulfate [Albuterol 2 puff INHALATION RT-QID PRN 04/01/24 04/15/24 History Sulfate Hfa] Buprenorphine-Nalox 8-2 mg Tab 1 tab SUBLINGUAL W/SUPPER 04/01/24 04/15/24 History [Suboxone 8-2 mg Tab] Cholecalciferol (Vitamin D3) 50 mcg PO W/SUPPER 04/01/24 04/15/24 History [Vitamin D3 (50 Mcg = 2000 Iu)] Fluticasone Propion/Salmeterol 1 puff INHALATION RT-BID 04/01/24 04/15/24 History [Fluticasone-Salmeterol 500-50] Omeprazole [PriLOSEC] 40 mg PO W/SUPPER 04/01/24 04/15/24 History Rosuvastatin [Crestor] 20 mg PO W/SUPPER 04/01/24 04/15/24 History Tiotropium 2.5 Mcg/Puff [Spiriva 2 puff INHALATION RT-HS 04/01/24 04/15/24 Hi story Respimat 2.5 Mcg] Furosemide [Lasix] 20 mg PO DAILY #60 tab 04/07/24 04/15/24 Rx amLODIPine [Norvasc] 5 mg PO BID #90 tab 04/07/24 04/15/24 Rx carvediloL [Coreg] 6.25 mg PO BID-W/MEALS #60 tab 04/07/24 04/15/24 Rx polyethylene glycoL 3350 [Miralax] 17 gm PO DAILY #30 packet 04/07/24 04/15/24 Rx Ipratropium-Albuterol Nebulize 3 ml INHALATION RT-Q6H PRN 04/15/24 04/15/24 History [Duoneb 0.5 mg-3 mg/3 ml Soln] methylPREDNISolone [Medrol Dose See Taper PO DIRECTED 04/15/24 04/15/24 History Pack] Allergies Allergy/AdvReac Type Severity Reaction Status Date / Time bee venom protein (honey bee) Allergy Rash/Hives Verified 04/15/24 14:52 strawberry Allergy Rash/Hives Verified 04/15/24 14:52 Physical Exam Vitals: Vital Signs Temp Pulse Pulse Resp BP BP Pulse Ox 04/16/24 07:30 71 17 169/96 99 04/16/24 07:00 96 36 H 96 04/16/24 06:30 65 18 115/72 99 04/16/24 06:00 71 17 95 04/16/24 05:30 85 21 114/68 99 04/16/24 05:00 70 16 04/16/24 04:30 69 18 112/63 99 04/16/24 04:13 04/16/24 04:00 97.5 F L 72 17 99 04/16/24 03:30 70 18 109/68 99 04/16/24 03:00 73 17 102/64 99 04/16/24 02:30 72 19 112/69 84 L 04/16/24 02:00 74 17 99/65 98 04/16/24 01:45 75 17 94/60 99 04/16/24 01:30 74 17 98/60 98 04/16/24 01:15 73 19 98/65 96 04/16/24 01:00 75 17 88/58 04/16/24 00:45 77 21 85/58 04/16/24 00:30 78 17 100/65 04/16/24 00:15 81 18 107/64 97 04/16/24 00:00 97.2 F L 93 27 H 78/58 97 04/15/24 23:45 83 19 84/55 97 04/15/24 23:30 87 17 88/70 97 04/15/24 23:15 96 18 181/100 98 04/15/24 23:00 118 H 37 H 99 04/15/24 22:45 118 H 47 H 200/127 97 04/15/24 22:30 105 H 18 92/50 99 04/15/24 22:15 86 17 100 04/15/24 22:14 85 16 87/46 100 04/15/24 22:00 85 17 95/48 100 04/15/24 21:45 93 18 78/36 99 04/15/24 21:30 89 19 66/35 97 04/15/24 21:15 92 17 100/66 97 04/15/24 21:00 100 18 90/53 98 04/15/24 20:45 118 H 30 H 112/63 99 04/15/24 20:38 96.5 F L 98 32 H 169/106 98 04/15/24 20:30 123 H 8 L 169/106 98 04/15/24 19:56 97.2 F L 124 H 40 H 138/110 04/15/24 19:40 117 H 37 H 187/112 99 04/15/24 19:39 118 H 33 H 04/15/24 19:32 118 H 32 H 04/15/24 19:30 04/15/24 19:26 12 L 38 H 172/90 91 L 04/15/24 19:03 112 H 36 H 184/110 93 L 04/15/24 18:44 109 H 30 H 175/90 95 04/15/24 18:05 94 18 93/54 96 04/15/24 17:21 108 H 30 H 157/84 90 L 04/15/24 17:09 106 H 26 H 102/59 97 04/15/24 15:23 102 H 18 103/63 99 04/15/24 14:46 98.1 F 125 H 38 H 173/110 96 04/15/24 14:45 04/15/24 14:44 126 H 04/15/24 14:30 124 H 35 H 99 04/15/24 14:28 34 H 04/15/24 14:22 115 H 34 H 164/86 99 04/15/24 14:12 114 H 04/15/24 13:46 118 H 30 H 98 04/15/24 13:41 117 H 36 H 172/97 97 FiO2 04/16/24 07:30 04/16/24 07:00 04/16/24 06:30 04/16/24 06:00 04/16/24 05:30 04/16/24 05:00 04/16/24 04:30 04/16/24 04:13 50 04/16/24 04:00 50 04/16/24 03:30 04/16/24 03:00 04/16/24 02:30 04/16/24 02:00 04/16/24 01:45 04/16/24 01:30 04/16/24 01:15 04/16/24 01:00 04/16/24 00:45 04/16/24 00:30 04/16/24 00:15 04/16/24 00:00 50 04/15/24 23:45 50 04/15/24 23:30 04/15/24 23:15 04/15/24 23:00 04/15/24 22:45 04/15/24 22:30 04/15/24 22:15 04/15/24 22:14 04/15/24 22:00 04/15/24 21:45 04/15/24 21:30 04/15/24 21:15 04/15/24 21:00 04/15/24 20:45 04/15/24 20:38 50 04/15/24 20:30 50 04/15/24 19:56 04/15/24 19:40 04/15/24 19:39 04/15/24 19:32 04/15/24 19:30 55 04/15/24 19:26 04/15/24 19:03 04/15/24 18:44 04/15/24 18:05 04/15/24 17:21 04/15/24 17:09 04/15/24 15:23 04/15/24 14:46 04/15/24 14:45 40 04/15/24 14:44 04/15/24 14:30 04/15/24 14:28 04/15/24 14:22 04/15/24 14:12 04/15/24 13:46 04/15/24 13:41 Intake and Output 04/15/24 04/16/24 04/16/24 22:59 06:59 14:59 Intake Total 1207.712 808.676 100 Output Total 475 435 100 Balance 732.712 373.676 0 Intake: IV 1200 800 100 Sodium Chloride 0.9% 1, 200 800 100 000 ml @ 100 mls/hr IV . Q10H [facility] Rx#:[id number] Sodium Chloride 0.9% 1, 1000 000 ml @ 999 mls/hr IV . Q1H1M [facility] Rx#:[id number] Intake, IV Titration 7.712 8.676 Amount Dexmedetomidine/0.9% NaCl 7.712 8.676 (Pmx) 400 mcg In Empty Bag 1 bag @ 0.2 MCG/KG/HR 3.856 mls/hr IV .Q24H [facility] Rx#:[id number] Output: Urine 475 435 100 Uretheral ([place]) 200 Other: Weight 77.111 kg 88 kg General: Revealed a 73-year-old white male patient is currently calm and comfortable on Precedex and on a BiPAP pressure of 12/5 with an FiO2 of 50% Head: Atraumatic, normocephalic Skin: Skin is warm and dry and no rashes or lesions are noted. Eye: Pupils are equal, round and reactive to light, extra-ocular movements are intact; there is normal conjunctiva bilaterally. Ears, nose, mouth and throat: There are moist mucous membranes and no oral lesions. Neck: The neck is supple, there is no tenderness or JVD. Cardiovascular: Distant S1-S2, no S3 gallop, no murmur Respiratory: Diminished breath sound bilaterally no crackles rhonchi or wheezes Gastrointestinal: Soft, non-distended, non-tender abdomen without masses or organomegaly noted. There is no rebound or guarding present. Bowel sounds are unremarkable. Musculoskeletal: Normal ROM, no tenderness, There is no pedal edema. Neurological: CN II-XII intact, Cranial nerves III through XII are intact. No gross focal neurologic deficit Psychiatric: Normal mood, affect and no mental status examination Results - Laboratory Findings CBC and BMP: 04/16/24 04:52 04/16/24 04:52 ABG ABG pH 7.32 (7.35-7.45) L 04/15/24 19:08 ABG pCO2 55 mmHg (35-45) H 04/15/24 19:08 ABG pO2 60 mmHg (83-108) L 04/15/24 19:08 ABG O2 Saturation 90.0 % (94-97) L 04/15/24 19:08 PT/INR, D-dimer PT 10.6 sec (10.0-12.5) 04/15/24 14:22 INR 0.9 (<1.2) 04/15/24 14:22 D-Dimer 0.61 mg/L FEU (<0.60) H 04/16/24 05:53 Abnormal lab findings: Abnormal Labs 04/15/24 04/15/24 04/15/24 14:22 14:22 15:39 WBC 15.0 H RBC Hgb Hct Neutrophils # 13.0 H D-Dimer ABG pH ABG pCO2 ABG pO2 ABG HCO3 ABG Total CO2 ABG O2 Saturation Sodium 132 L Chloride 96 L BUN 29 H Glucose 150 H POC Glucose (mg/dL) Calcium RSV (PCR) Detected A 04/15/24 04/15/24 04/16/24 19:08 20:16 04:52 WBC RBC 3.82 L Hgb 11.3 L D Hct 34.2 L Neutrophils # D-Dimer ABG pH 7.32 L ABG pCO2 55 H ABG pO2 60 L ABG HCO3 28 H ABG Total CO2 30 H ABG O2 Saturation 90.0 L Sodium Chloride BUN Glucose POC Glucose (mg/dL) 167 H Calcium RSV (PCR) 04/16/24 04/16/24 04:52 05:53 WBC RBC Hgb Hct Neutrophils # D-Dimer 0.61 H ABG pH ABG pCO2 ABG pO2 ABG HCO3 ABG Total CO2 ABG O2 Saturation Sodium 133 L Chloride BUN 29 H Glucose 156 H POC Glucose (mg/dL) Calcium 8.1 L RSV (PCR) - Diagnostic Findings Chest x-ray: image reviewed Assessment and Plan Plan: Acute exacerbation of COPD. The patient had an acute RSV infection back in 04/02/2024. She was discharged home to presented again with worsening shortness of breath and his presentation is consistent with COPD exacerbation and acute hypoxic/hypercapnic respiratory failure. Currently on BiPAP for respiratory support at a pressure of 12/5 with an FiO2 of 50%. He is also on Precedex to maintain synchrony with BiPAP. Acute on top of chronic hypoxic/hypercapnic respiratory failure Acute RSV infection, diagnosed on 04/02/2024, requiring hospitalization for an acute COPD exacerbation History of severe Gold stage IV COPD FEV1 of 24% Dyspnea on exertion secondary to above, patient had negative D-dimer on this admission Dyslipidemia Benign essential hypertension History of hernia repair GERD without esophagitis Plan Continue BiPAP therapy Keep the patient on Precedex and gradually wean Patient has tolerated the BiPAP reasonably well Continue bronchodilators with DuoNeb of chest Put the patient on a combination of Perforomist and Pulmicort nebulized treatment twice a day discontinue the Symbicort IV Solu-Medrol 60 mg every 6 hours Procalcitonin level is not elevated Lovenox for DVT prophylaxis Protonix Resume home medications Will continue to follow Time with Patient: Greater than 30
--- NOTE | 2024-04-16 14:47 | P.PN ---
Subjective Progress Note Date: 04/16/24 Pt is improved on precedex gtt. Continuing bipap with plans to wean later today per nursing. Gen: In NAD, non-toxic HEENT: normocephalic, atraumatic, hearing acuity is intant, mucous membranes moist CVS: perfusing all extremities well, no pitting edema, Respiratory: symmetric chest expansion, no accessory muscle use, GI: soft, NTTP, ND, : no suprapubic tenderness, no CVA tenderness MSK/Derm: no rashes, cyanosis Neuro: CN II-XII intact, no motor weakness, Psych: cooperative, euthymic mood, judgment and insight is intact Hospital course: Patient is a 73-year-old male with past medical history significant for COPD not oxygen dependent, hypertension, hyperlipidemia, GERD presenting to the emergency department today due to shortness of breath. Upon arrival he was in respiratory distress, tachypneic with minimal air entry, and tachycardic. He was placed on BiPAP and transferred to the ICU. Initial vitals: BP 172/97, [place] 117 bpm, RR 36 Initial labs: WBC 15, hemoglobin 14.5, platelets 334, sodium 132, potassium 4.9, chloride 96, CO2 27, BUN 29, creatinine 0.90, glucose 150; RSV positive Initial EKG: Sinus tachycardia with ventricular rate 114 bpm, right bundle branch block, QTc 413 ms Initial chest x-ray: COPD changes, no acute cardiopulmonary disease process Follow-up labs: Procalcitonin is 0.07. D-dimer is 0.61. Assessment/plan: Patient is a 73-year-old male with past medical history significant for not oxygen dependent COPD, hypertension, hyperlipidemia, GERD admitted for acute COPD exacerbation. Active #. Acute COPD exacerbation #. Acute hypoxic respiratory failure #. Leukocytosis with neutrophilic predominance #. RSV pneumonia #. Respiratory acidosis On BiPAP AB.32, 55, 60 on 44% FiO2 Continue with oxygen supplementation to maintain O2 saturation greater than 88% Continue with DuoNebs four times daily and as needed Continue SoluMedrol 60 mg IV every 6 hours continue fluticasone/salmetrol BID inhaler pulmonary consult is appreciated Wean Precedex drip as able check blood cultures, pending check sputum culture, pending #. Hypotension, resolved Received 1 L bolus 0.9% saline Continue with 0.9% saline at 100 cc/h Chronic #. Hypertension Hold home amlodipine Continue Coreg; hold for SBP <100 #. Hyperlipidemia Continue Crestor 20 mg daily DVT prophylaxis: Lovenox 40 mg subcutaneous daily GI prophylaxis: Omeprazole 40 mg p.o. daily The patient is admitted with an anticipated more than 2 midnight stay for evaluation of acute COPD exacerbation CODE STATUS: Full code Anticipated discharge place: Pending clinical course Objective - Vital Signs Vital signs: Vital Signs Temp 98.2 F 04/16/24 12:00 Pulse 108 H 04/16/24 14:00 Resp 26 H 04/16/24 14:00 BP 142/81 04/16/24 14:00 Pulse Ox 97 04/16/24 14:00 FiO2 40 04/16/24 11:00 Intake & Output 04/15/24 04/16/24 04/16/24 18:59 06:59 18:59 Intake Total 2016.388 858.120 Output Total 910 445 Balance 1106.388 413.120 Weight 77.111 kg 88 kg Intake: IV 2000 800 Sodium Chloride 0.9% 1, 1000 800 000 ml @ 100 mls/hr IV . Q10H [facility] Rx#:[id number] Sodium Chloride 0.9% 1, 1000 000 ml @ 999 mls/hr IV . Q1H1M [facility] Rx#:[id number] Intake, IV Titration 16.388 58.120 Amount Dexmedetomidine/0.9% NaCl 16.388 58.120 (Pmx) 400 mcg In Empty Bag 1 bag @ 0.2 MCG/KG/HR 3.856 mls/hr IV .Q24H [facility] Rx#:[id number] Output: Urine 910 445 Uretheral ([place]) 200 Other: Voiding Method Indwelling Catheter - Labs CBC & Chem 7: 04/16/24 04:52 04/16/24 04:52 Labs: Abnormal Lab Results - Last 24 Hours (Table) 04/15/24 04/15/24 04/15/24 Range/Units 14:22 14:22 15:39 WBC 15.0 H (3.8-10.6) k/uL RBC (4.30-5.90) m/uL Hgb (13.0-17.5) gm/dL Hct (39.0-53.0) % Neutrophils # 13.0 H (1.3-7.7) k/uL D-Dimer (<0.60) mg/L FEU ABG pH (7.35-7.45) ABG pCO2 (35-45) mmHg ABG pO2 (83-108) mmHg ABG HCO3 (21-25) mmol/L ABG Total CO2 (19-24) mmol/L ABG O2 Saturation (94-97) % Sodium 132 L (137-145) mmol/L Chloride 96 L (98-107) mmol/L BUN 29 H (9-20) mg/dL Glucose 150 H (74-99) mg/dL POC Glucose (mg/dL) (70-110) mg/dL Calcium (8.4-10.2) mg/dL RSV (PCR) Detected A (Not Detectd) 04/15/24 04/15/24 04/16/24 Range/Units 19:08 20:16 04:52 WBC (3.8-10.6) k/uL RBC 3.82 L (4.30-5.90) m/uL Hgb 11.3 L D (13.0-17.5) gm/dL Hct 34.2 L (39.0-53.0) % Neutrophils # (1.3-7.7) k/uL D-Dimer (<0.60) mg/L FEU ABG pH 7.32 L (7.35-7.45) ABG pCO2 55 H (35-45) mmHg ABG pO2 60 L (83-108) mmHg ABG HCO3 28 H (21-25) mmol/L ABG Total CO2 30 H (19-24) mmol/L ABG O2 Saturation 90.0 L (94-97) % Sodium (137-145) mmol/L Chloride (98-107) mmol/L BUN (9-20) mg/dL Glucose (74-99) mg/dL POC Glucose (mg/dL) 167 H (70-110) mg/dL Calcium (8.4-10.2) mg/dL RSV (PCR) (Not Detectd) 04/16/24 04/16/24 Range/Units 04:52 05:53 WBC (3.8-10.6) k/uL RBC (4.30-5.90) m/uL Hgb (13.0-17.5) gm/dL Hct (39.0-53.0) % Neutrophils # (1.3-7.7) k/uL D-Dimer 0.61 H (<0.60) mg/L FEU ABG pH (7.35-7.45) ABG pCO2 (35-45) mmHg ABG pO2 (83-108) mmHg ABG HCO3 (21-25) mmol/L ABG Total CO2 (19-24) mmol/L ABG O2 Saturation (94-97) % Sodium 133 L (137-145) mmol/L Chloride (98-107) mmol/L BUN 29 H (9-20) mg/dL Glucose 156 H (74-99) mg/dL POC Glucose (mg/dL) (70-110) mg/dL Calcium 8.1 L (8.4-10.2) mg/dL RSV (PCR) (Not Detectd)
[2024-04-16] MEDS: ATORVASTATIN 40 MG TAB PO SCH (20:15)
[2024-04-17 07:19] LABS: Basophils % (A) 0 %; Eosinophils % (A) 0 %; HCT 38.2 % (39.0-53.0); HGB 12.5 gm/dL (13.0-17.5); Lymphocytes # (A) 0.4 k/uL (1.0-4.8); Lymphocytes % (A) 4 %; MCH 29.2 pg (25.0-35.0); MCHC 32.6 g/dL (31.0-37.0); MCV 89.5 fL (80.0-100.0); Mean Platelet Volume 7.4; Monocytes # (A) 0.2 k/uL (0-1.0); Monocytes % (A) 2 %; Neutrophils # (A) 10.3 k/uL (1.3-7.7); Neutrophils % (A) 94 %; Platelet Count 305 k/uL (150-450); RBC 4.26 m/uL (4.30-5.90); RDW 13.3 % (11.5-15.5)
[2024-04-17 07:32] LABS: African American GFR (CKD) >90 (>60 ml/min/1.73 sqM); Anion Gap 5 mmol/L; Blood Urea Nitrogen 29 mg/dL (9-20); Calcium 8.8 mg/dL (8.4-10.2); Carbon Dioxide 28 mmol/L (22-30); Chloride 101 mmol/L (98-107); Glucose 145 mg/dL (74-99); Magnesium 2.1 mg/dL (1.6-2.3); Non-African American GFR(CKD) 88 (>60 ml/min/1.73 sqM); Potassium 4.6 mmol/L (3.5-5.1); Sodium 134 mmol/L (137-145)
[2024-04-17] MEDS: SIMETHICONE 80 MG CHEWABLE PO PRN (12:46)
--- NOTE | 2024-04-17 13:19 | P.PN ---
Subjective Progress Note Date: 04/17/24 Pt is returned to [place] and appears comfortable on exam today. Has no complaints but lung sounds are still extremely quiet. Gen: In NAD, non-toxic HEENT: normocephalic, atraumatic, hearing acuity is intant, mucous membranes moist CVS: perfusing all extremities well, no pitting edema, Respiratory: symmetric chest expansion, no accessory muscle use, GI: soft, NTTP, ND, : no suprapubic tenderness, no CVA tenderness MSK/Derm: no rashes, cyanosis Neuro: CN II-XII intact, no motor weakness, Psych: cooperative, euthymic mood, judgment and insight is intact Hospital course: Patient is a 73-year-old male with past medical history significant for COPD not oxygen dependent, hypertension, hyperlipidemia, GERD presenting to the emergency department today due to shortness of breath. Upon arrival he was in respiratory distress, tachypneic with minimal air entry, and tachycardic. He was placed on BiPAP and transferred to the ICU. Initial vitals: BP 172/97, [place] 117 bpm, RR 36 Initial labs: WBC 15, hemoglobin 14.5, platelets 334, sodium 132, potassium 4.9, chloride 96, CO2 27, BUN 29, creatinine 0.90, glucose 150; RSV positive Initial EKG: Sinus tachycardia with ventricular rate 114 bpm, right bundle branch block, QTc 413 ms Initial chest x-ray: COPD changes, no acute cardiopulmonary disease process Follow-up labs: Procalcitonin is 0.07. D-dimer is 0.61. Assessment/plan: Patient is a 73-year-old male with past medical history significant for not oxygen dependent COPD, hypertension, hyperlipidemia, GERD admitted for acute COPD exacerbation. #. Acute hypoxic and hypercapnic respiratory failure #. Acute COPD exacerbation #. RSV pneumonia Continue with oxygen supplementation to maintain O2 saturation greater than 88% Continue with DuoNebs four times daily and as needed Continue SoluMedrol 60 mg IV every 6 hours continue budesonide/formoterol BID inhaler pulmonary consult is appreciated Precedex discontinued BCx - NGTD check sputum culture, pending Chronic #. Hypertension Hold home amlodipine Continue Coreg; hold for SBP <100 #. Hyperlipidemia Continue Crestor 20 mg daily DVT prophylaxis: Lovenox 40 mg subcutaneous daily GI prophylaxis: Omeprazole 40 mg p.o. daily The patient is admitted with an anticipated more than 2 midnight stay for evaluation of acute COPD exacerbation CODE STATUS: Full code Anticipated discharge place: Pending clinical course Objective - Vital Signs Vital signs: Vital Signs Temp 98.3 F 04/17/24 08:00 Pulse 89 04/17/24 12:01 Resp 19 04/17/24 10:00 BP 143/78 04/17/24 10:00 Pulse Ox 96 04/17/24 10:00 FiO2 40 04/16/24 11:00 Intake & Output 04/16/24 04/17/24 04/17/24 18:59 06:59 18:59 Intake Total 9653.293 2668 200 Output Total 645 945 150 Balance 613.120 355 50 Weight 85.8 kg Intake: IV 1200 1300 200 Sodium Chloride 0.9% 1, 1200 1300 200 000 ml @ 10 mls/hr IV . Q24H [facility] Rx#:[id number] Intake, IV Titration 58.120 Amount Dexmedetomidine/0.9% NaCl 58.120 (Pmx) 400 mcg In Empty Bag 1 bag @ 0.2 MCG/KG/HR 3.856 mls/hr IV .Q24H [facility] Rx#:[id number] Output: Urine 645 945 150 Other: Voiding Method Indwelling Catheter Indwelling Catheter Indwelling Catheter - Labs CBC & Chem 7: 04/17/24 06:57 04/17/24 06:57 Labs: Abnormal Lab Results - Last 24 Hours (Table) 04/17/24 04/17/24 Range/Units 06:57 06:57 WBC 11.0 H (3.8-10.6) k/uL RBC 4.26 L (4.30-5.90) m/uL Hgb 12.5 L (13.0-17.5) gm/dL Hct 38.2 L (39.0-53.0) % Neutrophils # 10.3 H (1.3-7.7) k/uL Lymphocytes # 0.4 L (1.0-4.8) k/uL Sodium 134 L (137-145) mmol/L BUN 29 H (9-20) mg/dL Glucose 145 H (74-99) mg/dL Microbiology - Last 24 Hours (Table) 04/15/24 14:22 Blood Culture - Preliminary Blood
--- NOTE | 2024-04-17 13:21 | P.PN ---
Subjective Progress Note Date: 04/17/24 This is a 73-year-old white male, known history of severe COPD/emphysema, FEV1 is in the range of 24% at best based on the PFT done on 10/22/2023. FEV1/FVC is 44%, DLCO is in the range of 42%, patient obviously has severe Gold stage IV COPD/emphysema. However according to the patient is not O2 dependent, and is not prednisone dependent. The patient had a recent hospitalization on 04/12/2024 for an acute CF exacerbation secondary to acute RSV infection.This patient presented yesterday to the emergency department because of increased shortness of breath. The patient was quite tachypneic and was having some altered mentation. Initially, he was placed on a BiPAP. He was unable to tolerate the BiPAP and based on that, the patient was initially given Haldol and subsequently was started on Precedex drip and BiPAP therapy was continued throughout the night. He was transferred to the intensive care unit. Currently, Precedex is running at 0.3 mcg/kg/min. He is on a BiPAP pressure of 12/5 with an FiO2 of 50%. Blood gases showed a pH of 7.32 with a pCO2 55 pO2 of 60. He is generating approximately a tidal volume of 450 cc while being on a BiPAP with respiratory rate of 22. He is obviously less tachypneic compared to yesterday. Chest x-ray shows COPD without any airspace disease. Noted the patient had a RSV infection requiring a brief hospitalization back in 04/02/2024 and RSV still positive. The rest of the viral screen was negative. BUN 29 with a creatinine of 0.7. Serum bicarbonate 26 with a sodium level of 133. D-dimer is 0.6. The white cell count 6.7 with a hemogram 0.3 and a platelet count of 219. He is on DuoNeb updrafts. He is on IV Solu-Medrol. Arousable and awake and mental status improved compared to yesterday. No significant agitation. On 04/17/2024, the patient is being seen for a follow-up. The patient is feeling much better compared to yesterday. The patient is currently off Precedex drip. The patient is also off BiPAP. Currently is on 3 Suboxone by nasal cannula. He is less bronchospastic and wheezy. No chest pain. No significant shortness of breath at rest. No altered mentation. The white cell count is 11 with a hemoglobin 12.5 and a platelet count of 305. BUN is 29 with a creatinine of 0.8 and sodium is at 134. Procalcitonin level is at 0.07. Objective - Vital Signs Vital signs: Vital Signs Temp 98.7 F 04/17/24 00:00 Pulse 97 04/17/24 08:24 Resp 30 H 04/17/24 07:00 BP 149/96 04/17/24 07:00 Pulse Ox 98 04/17/24 08:16 FiO2 40 04/16/24 11:00 Intake & Output 04/16/24 04/17/24 04/17/24 18:59 06:59 18:59 Intake Total 6143.227 7674 Output Total 645 945 Balance 613.120 355 Weight 85.8 kg Intake: IV 1200 1300 Sodium Chloride 0.9% 1, 1200 1300 000 ml @ 100 mls/hr IV . Q10H [facility] Rx#:[id number] Intake, IV Titration 58.120 Amount Dexmedetomidine/0.9% NaCl 58.120 (Pmx) 400 mcg In Empty Bag 1 bag @ 0.2 MCG/KG/HR 3.856 mls/hr IV .Q24H [facility] Rx#:[id number] Output: Urine 645 945 Other: Voiding Method Indwelling Catheter Indwelling Catheter - Exam General: Revealed a 73-year-old white male patient is currently calm and comfortable off Precedex and off BiPAP, currently on 3 L of O2 nasal cannula Skin: Skin is warm and dry and no rashes or lesions are noted. Eye: Pupils are equal, round and reactive to light, extra-ocular movements are intact; there is normal conjunctiva bilaterally. Ears, nose, mouth and throat: There are moist mucous membranes and no oral lesions. Neck: The neck is supple, there is no tenderness or JVD. Cardiovascular: Distant S1-S2, no S3 gallop, no murmur Respiratory: Diminished breath sound bilaterally no crackles rhonchi or wheezes Gastrointestinal: Soft, non-distended, non-tender abdomen without masses or organomegaly noted. There is no rebound or guarding present. Bowel sounds are unremarkable. Musculoskeletal: Normal ROM, no tenderness, There is no pedal edema. Neurological: CN II-XII intact, Cranial nerves III through XII are intact. No gross focal neurologic deficit Psychiatric: Normal mood, affect and no mental status examination - Labs CBC & Chem 7: 04/17/24 06:57 04/17/24 06:57 Labs: Abnormal Lab Results - Last 24 Hours (Table) 04/17/24 04/17/24 Range/Units 06:57 06:57 WBC 11.0 H (3.8-10.6) k/uL RBC 4.26 L (4.30-5.90) m/uL Hgb 12.5 L (13.0-17.5) gm/dL Hct 38.2 L (39.0-53.0) % Neutrophils # 10.3 H (1.3-7.7) k/uL Lymphocytes # 0.4 L (1.0-4.8) k/uL Sodium 134 L (137-145) mmol/L BUN 29 H (9-20) mg/dL Glucose 145 H (74-99) mg/dL Microbiology - Last 24 Hours (Table) 04/15/24 14:22 Blood Culture - Preliminary Blood Assessment and Plan Plan: Acute exacerbation of COPD. The patient had an acute RSV infection back in 04/02/2024. She was discharged home to presented again with worsening shortness of breath and his presentation is consistent with COPD exacerbation and acute hypoxic/hypercapnic respiratory failure. Currently on BiPAP for respiratory support at a pressure of 12/5 with an FiO2 of 50%. Patient also required Precedex for agitation and anxiety and synchrony with the BiPAP treatment. Currently, he is improved considerably and the patient is weaned down to 2 L of oxygen by nasal cannula. Precedex infusion has been discontinued. BiPAP has been discontinued. Acute on top of chronic hypoxic/hypercapnic respiratory failure Acute RSV infection, diagnosed on 04/02/2024, requiring hospitalization for an acute COPD exacerbation History of severe Gold stage IV COPD FEV1 of 24% Dyspnea on exertion secondary to above, patient had negative D-dimer on this admission Dyslipidemia Benign essential hypertension History of hernia repair GERD without esophagitis Plan Keep the patient off BiPAP. Precedex has been discontinued Continue bronchodilators with DuoNeb Put the patient on a combination of Perforomist and Pulmicort nebulized treatment twice a day IV Solu-Medrol 60 mg every 6 hours Procalcitonin level is not elevated Lovenox for DVT prophylaxis Protonix Resume home medications Will continue to follow Time with Patient: Greater than 30
[2024-04-18 01:41] VITALS: TEMP 97.7
[2024-04-18 09:33] VITALS: BP 153/92
[2024-04-18 09:57] VITALS: RESP 18
[2024-04-18 13:51] VITALS: PULSE 82
--- NOTE | 2024-04-18 14:05 | P.PN ---
Subjective Progress Note Date: 04/18/24 This is a 73-year-old white male, known history of severe COPD/emphysema, FEV1 is in the range of 24% at best based on the PFT done on 10/22/2023. FEV1/FVC is 44%, DLCO is in the range of 42%, patient obviously has severe Gold stage IV COPD/emphysema. However according to the patient is not O2 dependent, and is not prednisone dependent. The patient had a recent hospitalization on 04/12/2024 for an acute CF exacerbation secondary to acute RSV infection.This patient presented yesterday to the emergency department because of increased shortness of breath. The patient was quite tachypneic and was having some altered mentation. Initially, he was placed on a BiPAP. He was unable to tolerate the BiPAP and based on that, the patient was initially given Haldol and subsequently was started on Precedex drip and BiPAP therapy was continued throughout the night. He was transferred to the intensive care unit. Currently, Precedex is running at 0.3 mcg/kg/min. He is on a BiPAP pressure of 12/5 with an FiO2 of 50%. Blood gases showed a pH of 7.32 with a pCO2 55 pO2 of 60. He is generating approximately a tidal volume of 450 cc while being on a BiPAP with respiratory rate of 22. He is obviously less tachypneic compared to yesterday. Chest x-ray shows COPD without any airspace disease. Noted the patient had a RSV infection requiring a brief hospitalization back in 04/02/2024 and RSV still positive. The rest of the viral screen was negative. BUN 29 with a creatinine of 0.7. Serum bicarbonate 26 with a sodium level of 133. D-dimer is 0.6. The white cell count 6.7 with a hemogram 0.3 and a platelet count of 219. He is on DuoNeb updrafts. He is on IV Solu-Medrol. Arousable and awake and mental status improved compared to yesterday. No significant agitation. On 04/17/2024, the patient is being seen for a follow-up. The patient is feeling much better compared to yesterday. The patient is currently off Precedex drip. The patient is also off BiPAP. Currently is on 3 Suboxone by nasal cannula. He is less bronchospastic and wheezy. No chest pain. No significant shortness of breath at rest. No altered mentation. The white cell count is 11 with a hemoglobin 12.5 and a platelet count of 305. BUN is 29 with a creatinine of 0.8 and sodium is at 134. Procalcitonin level is at 0.07. The patient is seen today April 18, 2024 in follow-up on the regular medical floor. He is currently sitting up at the bedside. Awake and alert in no acute distress. Maintaining good O2 saturations in the 90s on 3 L/min per nasal cannula. His procalcitonin was negative at 0.07. Sputum culture revealed no growth. Blood culture revealed no growth. He remains on DuoNeb and elations, Symbicort, Solu-Medrol. Lovenox for DVT prophylaxis. Objective - Vital Signs Vital signs: Vital Signs Temp 97.7 F 04/18/24 08:05 Pulse 82 04/18/24 13:51 Resp 18 04/18/24 13:51 BP 153/92 04/18/24 08:05 Pulse Ox 97 04/18/24 08:05 FiO2 40 04/16/24 11:00 Intake & Output 04/17/24 04/18/24 04/18/24 18:59 06:59 18:59 Intake Total 700 Output Total 150 400 Balance 550 -400 Intake: IV 200 Sodium Chloride 0.9% 1, 200 000 ml @ 10 mls/hr IV . Q24H [facility] Rx#:[id number] Oral 500 Output: Urine 150 400 Other: Voiding Method Indwelling Catheter Urinal # Voids 3 - Exam GENERAL EXAM: Alert, pleasant 73-year-old male, on 3 L nasal cannula, comfortable in no apparent distress. HEAD: Normocephalic. EYES: Normal reaction of pupils, equal size. NOSE: Clear with pink turbinates. THROAT: No erythema or exudates. NECK: No masses, no JVD. CHEST: No chest wall deformity. LUNGS: Equal air entry with faint end expiratory wheeze, diminished. CVS: S1 and S2 normal with no audible murmur, regular rhythm. ABDOMEN: No hepatosplenomegaly, normal bowel sounds, no guarding or rigidity. SPINE: No scoliosis or deformity SKIN: No rashes CENTRAL NERVOUS SYSTEM: No focal deficits, tone is normal in all 4 extremities. EXTREMITIES: There is no peripheral edema. No clubbing, no cyanosis. Peripheral pulses are intact. - Labs CBC & Chem 7: 04/17/24 06:57 04/17/24 06:57 Labs: Microbiology - Last 24 Hours (Table) 04/17/24 08:24 Gram Stain - Final Sputum Sputum Culture - Final 04/15/24 14:22 Blood Culture - Preliminary Blood Assessment and Plan Assessment: Acute exacerbation of COPD. The patient had an acute RSV infection back in 04/02/2024. He was discharged home and then presented again with worsening shortness of breath and his presentation is consistent with COPD exacerbation and acute hypoxic/hypercapnic respiratory failure. Currently on BiPAP for respiratory support at a pressure of 12/5 with an FiO2 of 50%. Patient also required Precedex for agitation and anxiety and synchrony with the BiPAP treatment. Currently, he is improved considerably and the patient is weaned down to 3 L of oxygen by nasal cannula. Precedex infusion has been discontinued. BiPAP has been discontinued. Acute on top of chronic hypoxic/hypercapnic respiratory failure Acute RSV infection, diagnosed on 04/02/2024, requiring hospitalization for an acute COPD exacerbation History of severe Gold stage IV COPD FEV1 of 24% Dyspnea on exertion secondary to above, patient had negative D-dimer on this admission Dyslipidemia Benign essential hypertension History of hernia repair GERD without esophagitis Plan: The patient was seen and evaluated Labs and medications reviewed Stable on 3 L nasal cannula Cleared for discharge Continue his home pulmonary medications/oxygen Complete a prednisone taper starting at 40 mg x 4 days to taper down over 16 days Follow-up in our office in 1 week I have personally seen and examined the patient, performed the documentation and the assessment and plan as written. Number of minutes spent on the visit: 10 Dictation was produced using [employer] dictation software. Please excuse any grammatical, word or spelling errors.
--- NOTE | 2024-04-18 14:05 | P.DS ---
Providers Date of admission: 04/15/24 17:05 Expected date of discharge: 04/18/24 Attending physician: Gopi Espinosa Consults: 04/15/24 17:04 Consult Physician Routine Consulting Provider: Kyler Kearns Consult Reason/Comments: COPD, RSV Do you want consulting provider notified?: Yes Primary care physician: Sd Spangler [place] Hospital Course: Pt is returned to [place] and appears comfortable on exam today. Has no complaints but lung sounds are still extremely quiet. Gen: In NAD, non-toxic HEENT: normocephalic, atraumatic, hearing acuity is intant, mucous membranes moist CVS: perfusing all extremities well, no pitting edema, Respiratory: symmetric chest expansion, no accessory muscle use, GI: soft, NTTP, ND, : no suprapubic tenderness, no CVA tenderness MSK/Derm: no rashes, cyanosis Neuro: CN II-XII intact, no motor weakness, Psych: cooperative, euthymic mood, judgment and insight is intact #. Acute hypoxic and hypercapnic respiratory failure #. Acute COPD exacerbation #. RSV pneumonia #. Hypertension #. Hyperlipidemia Gen: In NAD, non-toxic HEENT: normocephalic, atraumatic, hearing acuity is intant, mucous membranes moist CVS: perfusing all extremities well, no pitting edema, Respiratory: symmetric chest expansion, no accessory muscle use, quiet lung sounds, no wheezing GI: soft, NTTP, ND, : no suprapubic tenderness, no CVA tenderness MSK/Derm: no rashes, cyanosis Neuro: CN II-XII intact, no motor weakness, Psych: cooperative, euthymic mood, judgment and insight is intact Hospital course: Patient is a 73-year-old male with past medical history significant for COPD not oxygen dependent, hypertension, hyperlipidemia, GERD presenting to the emergency department due to shortness of breath. Upon arrival he was in respiratory distress, tachypneic with minimal air entry, and tachycardic. He was placed on BiPAP and transferred to the ICU. Initial vitals: BP 172/97, ND 117 bpm, RR 36 Initial labs: WBC 15, hemoglobin 14.5, platelets 334, sodium 132, potassium 4.9, chloride 96, CO2 27, BUN 29, creatinine 0.90, glucose 150; RSV positive Initial EKG: Sinus tachycardia with ventricular rate 114 bpm, right bundle branch block, QTc 413 ms Initial chest x-ray: COPD changes, no acute cardiopulmonary disease process Follow-up labs: Procalcitonin is 0.07. D-dimer is 0.61. Patient initially required use of Precedex drip for agitation, but this was quickly weaned off. Patient was treated for acute hypoxic and hypercapnic respiratory failure superimposed on chronic hypercapnic respiratory failure secondary to COPD exacerbation triggered by RSV pneumonia. Patient was treated with steroids, nebulizers, Symbicort. Infectious workup was negative. Patient returned to his baseline, which is generally poor. On previous hospitalization, palliative care was recommended. This patient has high risk of readmission, but at this time is at his baseline and stable for discharge. I spent 36 minutes coordinating this discharge Patient Condition at Discharge: Good Plan - Discharge Summary Discharge Rx Participant: Yes New Discharge Prescriptions: New predniSONE [Deltasone] See Rx Instructions .ROUTE .COMPLEX #15 tab Acetaminophen Tab [Tylenol] 650 mg PO Q4HR PRN tab PRN Reason: Mild Pain Or Fever > 100.5 Continue Tiotropium 2.5 Mcg/Puff [Spiriva Respimat 2.5 Mcg] 2 puff INHALATION RT-HS Rosuvastatin [Crestor] 20 mg PO W/SUPPER Fluticasone Propion/Salmeterol [Fluticasone-Salmeterol 500-50] 1 puff INHALATION RT-BID Albuterol Nebulized [Ventolin Nebulized] 2.5 mg INHALATION RT-Q6H PRN PRN Reason: Shortness Of Breath Cholecalciferol (Vitamin D3) [Vitamin D3 (50 Mcg = 2000 Iu)] 50 mcg PO W/SUPPER carvediloL [Coreg] 6.25 mg PO BID-W/MEALS #60 tab polyethylene glycoL 3350 [Miralax] 17 gm PO DAILY #30 packet Ipratropium-Albuterol Nebulize [Duoneb 0.5 mg-3 mg/3 ml Soln] 3 ml INHALATION RT-Q6H PRN PRN Reason: Shortness Of Breath Or Wheezing Omeprazole [PriLOSEC] 40 mg PO W/SUPPER Albuterol Sulfate [Albuterol Sulfate Hfa] 2 puff INHALATION RT-QID PRN PRN Reason: Shortness Of Breath Buprenorphine-Nalox 8-2 mg Tab [Suboxone 8-2 mg Tab] 1 tab SUBLINGUAL W/SUPPER Furosemide [Lasix] 20 mg PO DAILY #60 tab Discontinued amLODIPine [Norvasc] 5 mg PO BID #90 tab methylPREDNISolone [Medrol Dose Pack] See Taper PO DIRECTED Discharge Medication List Albuterol Nebulized [Ventolin Nebulized] 2.5 mg INHALATION RT-Q6H PRN 04/01/24 [History] Albuterol Sulfate [Albuterol Sulfate Hfa] 2 puff INHALATION RT-QID PRN 04/01/24 [History] Buprenorphine-Nalox 8-2 mg Tab [Suboxone 8-2 mg Tab] 1 tab SUBLINGUAL W/SUPPER 04/01/24 [History] Cholecalciferol (Vitamin D3) [Vitamin D3 (50 Mcg = 2000 Iu)] 50 mcg PO W/SUPPER 04/01/24 [History] Fluticasone Propion/Salmeterol [Fluticasone-Salmeterol 500-50] 1 puff INHALATION RT-BID 04/01/24 [History] Omeprazole [PriLOSEC] 40 mg PO W/SUPPER 04/01/24 [History] Rosuvastatin [Crestor] 20 mg PO W/SUPPER 04/01/24 [History] Tiotropium 2.5 Mcg/Puff [Spiriva Respimat 2.5 Mcg] 2 puff INHALATION RT-HS 04/01/24 [History] Furosemide [Lasix] 20 mg PO DAILY #60 tab 04/07/24 [Rx] carvediloL [Coreg] 6.25 mg PO BID-W/MEALS #60 tab 04/07/24 [Rx] polyethylene glycoL 3350 [Miralax] 17 gm PO DAILY #30 packet 04/07/24 [Rx] Ipratropium-Albuterol Nebulize [Duoneb 0.5 mg-3 mg/3 ml Soln] 3 ml INHALATION RT-Q6H PRN 04/15/24 [History] Acetaminophen Tab [Tylenol] 650 mg PO Q4HR PRN tab 04/18/24 [Rx] predniSONE [Deltasone] See Rx Instructions .ROUTE .COMPLEX #15 tab 04/18/24 [Rx] Follow up Appointment(s)/Referral(s): Sd Spangler MD [Primary Care Provider] - 04/21/24 10:00 am Discharge Disposition: HOME SELF-CARE
--- NOTE | 2024-04-19 15:36 | CDI ---
Documentation Clarification Form Date: 04/19/2024 03:23:04 PM From: Lorena Cordova Phone: Admit Date: 04/15/2024 05:05:00 PM Patient Name: Axel Noyola Visit Number: [id number] Discharge Date: 04/18/2024 04:25:00 PM ATTENTION: The Clinical Documentation Specialists (CDI) and [facility] Coding Staff appreciate your assistance in clarifying documentation . Please respond to the clarification below the line at the bottom and electronically sign . The CDI & [facility] Coding staff will review the response and follow-up if needed . Please note: Queries are made part of the Legal Health Record . If you have any questions, please contact the author of this message via ITS . Doctor/Provider: Kyler Kearns RSV pneumonia is documented in h/p note 04/15 which may lack sufficient clinical evidence/support in the medical record . Additional clarification is requested . History/Risk Factors: Patient is a 73-year-old male with past medical history significant forCOPDnot oxygen dependent,hypertension,hyperlipidemia,GERD presenting to the emergency department today due toshortness of breath .Patient is seen in the ICU while onBiPAPwith at bedside who reports much of the history .On 03/30/2024 patient was diagnosed withRSV, on 04/01/2024 he was admitted for worsening of shortness of breath .Since his discharge on 04/07/2024 his states that he has been doing well .Today while at running errands he had sudden onset shortness of breathand wasdiaphoreticso she called EMS .I Clinical Indicators: Initial vitals: BP 172/97, AL 117 bpm, RR 36 Initial labs: WBC 15, hemoglobin 14 .5, platelets 334, sodium 132, potassium 4 .9, chloride 96, CO2 27, BUN 29, creatinine 0 .90, glucose 150;RSVpositive Initial EKG:Sinus tachycardiawith ventricular rate 114 bpm,right bundle branch block, QTc 413 ms Initialchest x-ray:COPDchanges, no acute cardiopulmonary Pulmonology Consult 04/16 -Acute exacerbation of COPD .The patient had an acute RSVinfectionback in 04/02/2024 .She was discharged home to presented again with worseningshortness of breathand his presentation is consistent withCOPD exacerbationandacute hypoxic/hypercapnic respiratory failure .Currently onBiPAPfor respiratory support at apressureof 01/27 with an FiO2 of 50% .He is also on Precedex tomaintain synchrony withBiPAP . Pn 04/17 -Keep the patient offBiPAP . Precedex has been discontinued Continue bronchodilators with DuoNeb Put the patient on a combination of Perforomist and Pulmicort nebulized treatment twice a day IV Solu-Medrol 60 mg every 6 hours Procalcitonin levelis notelevated Treatment: ContinueBiPAPtherapy Keep the patient on Precedex and gradually wean Patient has tolerated theBiPAPreasonably well Continue bronchodilators with DuoNeb of chest Put the patient on a combination of Perforomist and Pulmicort nebulized treatment twice a day discontinue the Symbicort IV Solu-Medrol 60 mg every 6 hours Please clarify if RSV pneumonia is a valid diagnosis? [ ] No, RSV pneumonia is ruled out [ x ] Yes, RSV pneumonia is present as evidence by (additional clinical support): [ ] Other (please specify diagnosis) [ ] Unable to determine (Template Last Revised: July 2023) MTDD
== END 2024-04-18 16:25 | disposition home or self-care (01) | DRG 193 ==
LOC: EC 13:38 → 3SCARD 17:05 → 2SICU 19:38 → 4SSUR 04-17 17:27
PROVIDERS: ADMIT Student in an Organized Health Care Education/Training Program; ATTEND Student in an Organized Health Care Education/Training Program
PROC: 5A09457 Assistance with Respiratory Ventilation, 24-96 Consecutive Hours, Continuous Positive Airway Pressure (ICD-10-PCS; principal; 2024-04-15)
DX: J12.1 Respiratory syncytial virus pneumonia (principal); J96.21 Acute and chronic respiratory failure with hypoxia; J96.22 Acute and chronic respiratory failure with hypercapnia; J44.0 Chronic obstructive pulmonary disease with (acute) lower respiratory infection; I10 Essential (primary) hypertension; J44.1 Chronic obstructive pulmonary disease with (acute) exacerbation; E87.29 Other acidosis; I95.9 Hypotension, unspecified; E78.5 Hyperlipidemia, unspecified; I45.10 Unspecified right bundle-branch block; K21.9 Gastro-esophageal reflux disease without esophagitis; R00.0 Tachycardia, unspecified; Z79.899 Other long term (current) drug therapy; Z91.030 Bee allergy status; Z91.018 Allergy to other foods; Z87.891 Personal history of nicotine dependence
CPT/HCPCS: 36415; 36600; 51702; 71045; 80048; 80053; 82805; 83605; 83735; 83880; 84145; 84484; 85025; 85027; 85379; 85610; 85730; 87040; 87070; 87205; 87636; 93005; 94640; 94660; 96374; 96375; 96376; 99291

== ENCOUNTER → 2024-04-15 | Outpatient (CLI) | payer OTHER, MEDICARE ==
[2024-04-15 10:41] LABS: African American GFR (CKD) >90 (>60 ml/min/1.73 sqM); Blood Urea Nitrogen 30 mg/dL (9-20); Non-African American GFR(CKD) 82 (>60 ml/min/1.73 sqM)
--- NOTE | 2024-04-15 12:21 | CT ---
EXAMINATION TYPE: CT chest w con CT DLP: 503 mGycm, Automated exposure control for dose reduction was used. DATE OF EXAM: 04/15/2024 11:06 AM COMPARISON: CT chest 11/06/2023 CLINICAL INDICATION:Male, 73 years old with history of R91.1 SOLITARY PULMONARY NODULE; [facility], TECHNIQUE: Multiple axial images were obtained through the chest following the administration of 100 cc of Isovue 300. . Coronal reformats reviewed. FINDINGS: LUNGS/ PLEURA: No pleural effusion, pneumothorax, or focal consolidation. Moderate centrilobular emph ysematous changes. Stable right middle lobe 5.7 mm pulmonary nodule (series 4, image 48). Stable righ t middle lobe 4.3 mm pulmonary nodule (series 4, 24). No new or enlarging pulmonary nodules. AIRWAY: Patent and unremarkable.. HEART: Size within normal limits.Trace anterior pericardial effusion. MEDIASTINUM: No evidence of adenopathy. VASCULATURE: No aortic aneurysm. MUSCULOSKELETAL: No acute osseous abnormalities. Anterior cervical fusion hardware. SOFT TISSUES/LYMPH NODES: Minimal bilateral gynecomastia. LOWER NECK: No significant findings. UPPER ABDOMEN: Small hiatal hernia. IMPRESSION: 1. Couple of stable right middle lobe pulmonary nodules. No new or enlarging pulmonary nodules. 2. Moderate atheromatous changes. [facility], , 04/15/2024 12:18 PM
== END | disposition home or self-care (01) ==
LOC: RADCTMAIN 10:04
PROVIDERS: ATTEND Internal Medicine Critical Care Medicine
DX: R91.1 Solitary pulmonary nodule (principal); R91.8 Other nonspecific abnormal finding of lung field; I70.90 Unspecified atherosclerosis
CPT/HCPCS: 82565; 84520; 71260; 36415; Q9967

== ENCOUNTER 2024-08-05 04:33 | Emergency (ER) | payer OTHER, MEDICARE ==
[2024-08-05 04:39] VITALS: BP 169/92; PULSE 116; RESP 18; TEMP 97.5
[2024-08-05] MEDS: HYDROmorphone 1 MG/ML 1 ML SYRINGE IM STA (05:45)
--- NOTE | 2024-08-05 06:31 | ED ---
Abdominal Pain HPI - General Chief Complaint: Abdominal Pain Stated Complaint: Urine Retention Time Seen by Provider: 08/05/24 04:35 Source: patient, RN notes reviewed Mode of arrival: ambulatory Limitations: no limitations - History of Present Illness Initial Comments: This is a 73-year-old male who presents to the emergency department for abdominal pain and constipation. His last bowel movement was 2 to 3 days ago. Since then he has started to develop increasing pain in his abdomen. Abdominal pain is described as diffuse. He is struggling to urinate as a result of the constipation. He is still urinating small amounts, but not having any constant streams. Denies any nausea or vomiting. He is still passing gas. He had a similar issue many years ago when he was constipated to this extent, but usually does not struggle with this. Denies any history of bowel obstructions. MD Complaint: abdominal pain - Related Data Home Medications Medication Instructions Recorded Confirmed Albuterol Nebulized [Ventolin 2.5 mg INHALATION RT-Q6H PRN 04/01/24 04/15/24 Nebulized] Albuterol Sulfate [Albuterol 2 puff INHALATION RT-QID PRN 04/01/24 04/15/24 Sulfate Hfa] Buprenorphine-Nalox 8-2 mg Tab 1 tab SUBLINGUAL W/SUPPER 04/01/24 04/15/24 [Suboxone 8-2 mg Tab] Cholecalciferol (Vitamin D3) 50 mcg PO W/SUPPER 04/01/24 04/15/24 [Vitamin D3 (50 Mcg = 2000 Iu)] Fluticasone Propion/Salmeterol 1 puff INHALATION RT-BID 04/01/24 04/15/24 [Fluticasone-Salmeterol 500-50] Omeprazole [PriLOSEC] 40 mg PO W/SUPPER 04/01/24 04/15/24 Rosuvastatin [Crestor] 20 mg PO W/SUPPER 04/01/24 04/15/24 Tiotropium 2.5 Mcg/Puff [Spiriva 2 puff INHALATION RT-HS 04/01/24 04/15/24 Respimat 2.5 Mcg] Ipratropium-Albuterol Nebulize 3 ml INHALATION RT-Q6H PRN 04/15/24 04/15/24 [Duoneb 0.5 mg-3 mg/3 ml Soln] Previous Rx's Medication Instructions Recorded Furosemide [Lasix] 20 mg PO DAILY #60 tab 04/07/24 carvediloL [Coreg] 6.25 mg PO BID-W/MEALS #60 tab 04/07/24 polyethylene glycoL 3350 [Miralax] 17 gm PO DAILY #30 packet 04/07/24 Acetaminophen Tab [Tylenol] 650 mg PO Q4HR PRN tab 04/18/24 predniSONE [Deltasone] See Rx Instructions .ROUTE 04/18/24 .COMPLEX #15 tab Allergies Allergy/AdvReac Type Severity Reaction Status Date / Time bee venom protein (honey bee) Allergy Rash/Hives Verified 08/05/24 04:39 strawberry Allergy Rash/Hives Verified 08/05/24 04:39 Review of Systems ROS Statement: Those systems with pertinent positive or pertinent negative responses have been documented in the HPI. ROS Other: All systems not noted in ROS Statement are negative. Past Medical History Past Medical History: COPD, GERD/Reflux, Hyperlipidemia Additional Past Medical History / Comment(s): no home O2 History of Any Multi-Drug Resistant Organisms: None Reported Past Surgical History: Back Surgery, Hernia Repair Additional Past Surgical History / Comment(s): surgery discs in neck w/ metal plate and 6 screws. Past Anesthesia/Blood Transfusion Reactions: No Reported Reaction Past Psychological History: No Psychological Hx Reported Smoking Status: Former smoker Past Alcohol Use History: None Reported Past Drug Use History: Marijuana - Past Family History Mother History Unknown: Yes Family Medical History: Cancer General Exam Limitations: no limitations General appearance: alert, in distress Head exam: Present: atraumatic, normocephalic, normal inspection Respiratory exam: Present: normal lung sounds bilaterally. Absent: respiratory distress, wheezes, rales, rhonchi, stridor Cardiovascular Exam: Present: regular rate, normal rhythm GI/Abdominal exam: Present: distended, tenderness (Diffuse) Back exam: Present: full ROM. Absent: tenderness, CVA tenderness (R), CVA tenderness (L) Neurological exam: Present: alert, oriented X3, CN II-XII intact Psychiatric exam: Present: normal affect, normal mood Skin exam: Present: warm, dry, intact, normal color. Absent: rash Course Vital Signs 08/05/24 04:37 Temperature 97.5 F L Pulse Rate 116 H Respiratory 18 Rate Blood Pressure 169/92 O2 Sat by Pulse 98 Oximetry Medical Decision Making - Medical Decision Making This is a 73-year-old male who presents to the emergency department for abdominal pain and back pain. Was pt. sent in by a medical professional or institution? @ -No Did you speak to anyone other than the patient for history? @ -No Did you review nursing and triage notes? @ -Yes, and I agree, it is accurate with regards to the patient's symptoms. Were old charts reviewed? @ -No Differential Diagnosis? @ -Differential Back Pain: Strain, zoster, cauda equina syndrome, epidural abscess, vertebral osteomyelitis, discitis, fracture, subluxation, disc herniation, DJD, spinal stenosis, dissection, AAA, pancreatitis, peptic ulcer disease, pyelonephritis, kidney stone, this is not meant to be an all-inclusive list. EKG interpreted by me (3pts min.)? @ -Not obtained X-rays interpreted by me (1pt min.)? @ -KUB x-ray obtained. My interpretation identifies no dilation of the bowel loops. CT interpreted by me (1pt min.)? @ -Not obtained U/S interpreted by me (1pt. min.)? @ -Not obtained What testing was considered but not performed? (CT, X-rays, U/S, labs)? Why? @ -None What meds were considered but not given? Why? @ -None Did you discuss the management of the patient with other professionals? @ -No Did you reconcile home meds? @ -No Was smoking cessation discussed for >3mins.? @ -No Was critical care preformed (if so, how long)? @ -No Were there social determinants of health that impacted care today? How? (Homelessness, low income, unemployed, alcoholism, drug addiction, transportation, low edu. Level, literacy, decrease access to med. care, penitentiary, rehab)? @ -No Was there de-escalation of care discussed even if they declined? (Discuss DNR or withdrawal of care, Hospice)? @ -No What co-morbidities impacted this encounter? (DM, HTN, Smoking, COPD, CAD, Cancer, CVA, Hep., AIDS, mental health diagnosis, sleep apnea, morbid obesity)? @ -COPD Was patient admitted / discharged? @ -Discharged. KUB x-ray obtained revealing fecal debris without other acute process. Bladder scan performed on arrival demonstrating approximately 300 mL of urine. Milk molasses enema administered. Patient had a very large bowel movement and also urinated a large amount afterwards. States that symptoms resolved almost instantly and he felt substantially better. Repeat bladder scan performed demonstrating approximately 170 mL of urine. However, states that he again urinated a large amount afterwards. He may still exhibit some amount of retention due to the constipation, however this is not enough to initiate a Peres catheter. Advised the patient that if he does struggle with urinary retention again he needs to return to the emergency department. Otherwise advised he start something like a daily fiber supplement or probiotic to help regulate his bowel movements and also increase his fluid intake. Patient discharged home in stable condition. Case discussed with ED attending Dr. Ramirez. Return precautions reviewed in depth, the patient is instructed to return to the emergency department with any new, worsening, or concerning symptoms. Patient verbalized understanding. Undiagnosed new problem with uncertain prognosis? @ -None Drug Therapy requiring intensive monitoring for toxicity (Heparin, Nitro, Insulin, Cardizem)? @ -None Were any procedures done? @ -None Diagnosis/symptom? @ -Constipation, urinary retention Acute, or Chronic, or Acute on Chronic? @ -Acute Uncomplicated (without systemic symptoms) or Complicated (systemic symptoms)? @ -Uncomplicated Side effects of treatment? @ -None Exacerbation, Progression, or Severe Exacerbation] @ -Not applicable Poses a threat to life or bodily function? @ -No - Lab Data Lab Results 08/05/24 Range/Units 06:10 Urine Color Yellow Urine Appearance Cloudy (Clear) Urine pH 5.0 (5.0-8.0) Ur Specific [place] 1.022 (1.001-1.035) Urine Protein Negative (Negative) Urine Glucose (UA) Negative (Negative) Urine Ketones Negative (Negative) Urine Blood Trace H (Negative) Urine Nitrite Negative (Negative) Urine Bilirubin Negative (Negative) Urine Urobilinogen <2.0 (<2.0) mg/dL Ur Leukocyte Esterase Trace H (Negative) Urine RBC 30 H (0-5) /hpf Urine WBC 4 (0-5) /hpf Ur Squamous Epith Cells <1 (0-4) /hpf Urine Bacteria Rare H (None) /hpf Urine Mucus Occasional H (None) /hpf - Radiology Data Radiology results: report reviewed, image reviewed Disposition Clinical Impression: Constipation, Urinary retention Disposition: HOME SELF-CARE Instructions (If sedation given, give patient instructions): Constipation (ED) Additional Instructions: Return to the emergency department with any new, worsening, or concerning symptoms. Consider adding something like a probiotic or a fiber supplement daily to help regulate your bowels. Follow up with your primary care provider in 1-2 days. Is patient prescribed a controlled substance at d/c from ED?: No Referrals: Sd Spangler MD [Primary Care Provider] - 1-2 days Time of Disposition: 07:41
[2024-08-05 06:37] LABS: Appearance,Urine Cloudy (Clear); Bacteria,Urine Rare /hpf; Bilirubin,Urine Negative (Negative); Blood,Urine Trace (Negative); Color,Urine Yellow; Glucose,Urine (UA) Negative (Negative); Ketones,Urine Negative (Negative); Leukocyte Esterase,Urine Trace (Negative); Mucus,Urine Occasional /hpf; Nitrite,Urine Negative (Negative); Protein,Urine Negative (Negative); RBC,Urine 30 /hpf (0-5); Specific Gravity,Urine 1.022 (1.001-1.035); Squamous Epithelial Cell,Urine <1 /hpf (0-4); Urobilinogen,Urine <2.0 mg/dL (<2.0); WBC,Urine 4 /hpf (0-5)
[2024-08-05] MEDS: NA PHOS,M-B/NA PHOS,DI-BA 133 ML ENEMA RECTAL STA (06:49)
[2024-08-05] MEDS: KETOROLAC 15 MG/ML 1 ML VIAL IVP STA (06:49)
--- NOTE | 2024-08-05 07:34 | XR ---
EXAMINATION TYPE: XR KUB DATE OF EXAM: 08/05/2024 5:52 AM COMPARISON: None. CLINICAL INDICATION: Male, 73 years old with history of Abdominal pain, TECHNIQUE: XR KUB view(s) obtained. FINDINGS: There is a normal bowel gas pattern. Mild fecal debris is identified within the colon. No significant fecal retention identified. Psoas margins are normal. No organomegaly is present. IMPRESSION: 1. Un[facility]able [facility], , 08/05/2024 7:32 AM
[2024-08-05] MEDS: HYDROmorphone 0.5 MG/0.5 ML SYRINGE IVP STA (08:01)
[2024-08-05] MEDS: SODIUM CHLORIDE 0.9% 500 ML 500 ML IV ONE (08:01)
== END 2024-08-05 08:05 | disposition home or self-care (01) ==
LOC: EC 04:33
DX: K59.00 Constipation, unspecified (principal); R33.9 Retention of urine, unspecified; J44.9 Chronic obstructive pulmonary disease, unspecified; Z91.030 Bee allergy status; Z91.018 Allergy to other foods; Z87.891 Personal history of nicotine dependence
CPT/HCPCS: 51798; 81001; 74018; 99284; 96372; J1171